=== PATIENT | male | born 1935 | race Caucasian/White ===

== ENCOUNTER → 2018-03-25 | Outpatient (CLI) | payer OTHER | END | disposition home or self-care (01) | LOC: KCIC CT 09:21 | DX: J32.9 Chronic sinusitis, unspecified (principal); J34.1 Cyst and mucocele of nose and nasal sinus; G31.89 Other specified degenerative diseases of nervous system | CPT/HCPCS: 70486 ==

== ENCOUNTER → 2018-07-29 | Outpatient (CLI) | payer OTHER ==
[2015-11-17 11:08] VITALS: BP 134/76
[~2018-07-29] MED LIST: AMIO200T4 PO; AMIO400T5 PO; CYAN100070 PO; DILT240C2 PO; FERR325T72 PO; FOLI1TAB16 PO; FURO-68 PO; Hydrocodone/Acetaminophen PO; LEVE500T56 PO; LEVE500V7 IV; POTA10TA12 PO; PROP150T PO; Sennosides/Docusate Sodium PO; TERA5CAP3 PO; THIA250T2 PO; WARF6TAB49 PO
--- NOTE | 2018-07-29 12:59 | KCIC ---
EXAM: Thoracic spine, 3 views; lumbar spine, 5 views. HISTORY: Pain. COMPARISON: None. FINDINGS: Thoracic spine: Frontal, lateral and swimmer's views of the thoracic spine are obtained. There is mild S-shaped thoracic scoliosis and increased thoracic kyphosis. There is a moderate chronic appearing T7 wedge compression fracture. There is endplate remodeling at multiple levels. There is bone demineralization. There is evidence of median sternotomy and mitral valve surgery. There are distended air and stool-filled loops of bowel within the upper abdomen. There are healed rib fractures. There is mild anterolisthesis of C4 on C5. There is disc space narrowing predominantly at this level. Lumbar spine: 5 views of the lumbar spine are obtained. There is a moderate chronic appearing L2 compression fracture. There is no significant retropulsion of the cortex at this level. There is degenerative endplate remodeling with anterior ossify ptosis primarily at the upper lumbar levels. There is facet arthropathy predominantly at the mid and lower lumbar levels. There is grade 1 anterolisthesis of L3 on L4 and L4-L5. There is bone demineralization. There is a large amount of stool within the colon. There are distended air-filled loops of bowel within the abdomen. There is left proximal femoral fixation instrumentation. IMPRESSION: 1. Moderate chronic appearing T7 compression fracture and L2 compression fracture. 2. Multilevel degenerative change throughout the thoracolumbar spine and cervical spine, described in detail above. 3. Scoliosis and multilevel listhesis. 4. Bone demineralization. 5. Distended loops of bowel within the upper abdomen. This can be better assessed with an abdomen radiograph. Electronically signed by: Melissa Sow MD (07/29/2018 12:56 PM) [place] [id number]
== END | disposition home or self-care (01) ==
LOC: KCIC 11:59
PROVIDERS: ATTEND Emergency Medicine
DX: M47.895 Other spondylosis, thoracolumbar region (principal); M41.84 Other forms of scoliosis, thoracic region; M43.14 Spondylolisthesis, thoracic region; M81.8 Other osteoporosis without current pathological fracture; I12.9 Hypertensive chronic kidney disease with stage 1 through stage 4 chronic kidney disease, or unspecified chronic kidney disease; N18.2 Chronic kidney disease, stage 2 (mild); I48.2 Chronic atrial fibrillation; Z95.2 Presence of prosthetic heart valve; Z96.652 Presence of left artificial knee joint; Z90.49 Acquired absence of other specified parts of digestive tract; Z82.49 Family history of ischemic heart disease and other diseases of the circulatory system
CPT/HCPCS: 72072; 72110

== ENCOUNTER 2018-12-24 09:25 | Emergency (ER) | payer OTHER ==
[~2018-12-24] VITALS: Ht 182.9 cm; Wt 89.4 kg
[~2018-12-24 09:25] MED LIST changes: +WARF3TAB50 PO
--- NOTE | 2018-12-24 09:56 | PHYS DOC ---
Past Medical History Past Medical History: A-Fib, Seizure Additional Past Medical Histor: guillain barre, "folded intestine" Past Surgical History: Hip Replacement Additional Past Surgical Histo: "valve repair"-MITRAL Alcohol Use: None Drug Use: None Adult General Chief Complaint Chief Complaint: OTHER COMPLAINTS HPI HPI Patient is a 83 year old male with a PMH of Afib, BPH and urinary retention who presents with concerns regarding the color of his urine. He had pacemaker placed last week and upon discharge had urinary retention and was not able to void. He was sent home with a kuo and has a follow up appointment with urology next week. Yesterday his noted his urine to me "muddy brown." When it did not significantly clear up this morning she decided to bring him here to ED. Patient denies suprapubic tenderness or abdominal pain. He thinks he has had good oral intake and is eating and drinking normally. He reports residual tenderness around incision from where pacemaker was placed but otherwise is doing well. He denies fevers, chills, chest pain, worsening shortness of breath , or edema. Review of Systems Review of Systems Constitutional: Denies fever or chills HENT: Denies nasal congestion or sore throat Respiratory: Reports shortness of breath with exertion (chronic) GI: Denies abdominal pain, nausea, vomiting, diarrhea : Denies dysuria or hematuria, his reports "muddy brown" output from his kuo Musculoskeletal: Denies back pain or joint pain Integument: Denies rash or skin lesions, reports healing incision left upper chest Neurologic: Denies headache, focal weakness or sensory changes Complete systems were reviewed and found to be within normal limits, except as documented in this note. Current Medications Current Medications Current Medications Medications (Trade) Dose Ordered Sig/Tom Start Time Stop Time Status Last Admin Dose Admin Cephalexin HCl (Keflex) 500 mg 1X ONCE 12/24/18 13:00 12/24/18 13:01 DC 12/24/18 13:19 500 MG Sodium Chloride 1,000 ml @ 1,000 mls/hr 1X ONCE 12/24/18 10:00 12/24/18 10:59 DC 12/24/18 10:55 1,000 MLS/HR Allergies Allergies Allergies Coded Allergies Type Severity Reaction Last Updated Verified No Known Drug Allergies 12/24/18 No Physical Exam Physical Exam Constitutional: Well developed, well nourished, no acute distress, non-toxic appearance. HENT: Normocephalic, atraumatic, bilateral external ears normal, oropharynx moist Eyes: PERRL, EOMI, conjunctiva normal, no discharge. Neck:no tenderness, no JVD Cardiovascular:Heart rate regular rhythm, no murmur Lungs & Thorax: Bilateral breath sounds clear to auscultation Abdomen: soft, no tenderness, no distention : kuo catheter in place and appears to be draining without issue Skin: Warm, dry, no erythema, no rash, incision of left upper chest healing well with steri strips in place, no evidence of infection Extremities: No tenderness, no edema Neurologic: Alert and oriented X 3, normal motor function, normal sensory function, no focal deficits noted. Psychologic: Affect normal, judgement normal, mood normal. Current Patient Data Vital Signs Vital Signs Date Time Temp Pulse Resp B/P (MAP) Pulse Ox O2 Delivery O2 Flow Rate FiO2 12/24/18 13:30 50 20 183/86 (118) 96 Nasal Cannula 2.0 12/24/18 10:03 97.9 97.9 Lab Values Laboratory Tests Test 12/24/18 10:50 12/24/18 11:50 White Blood Count 7.4 x10^3/uL (4.0-11.0) Red Blood Count 3.75 x10^6/uL (4.30-5.70) L Hemoglobin 11.1 g/dL (13.0-17.5) L Hematocrit 34.1 % (39.0-53.0) L Mean Corpuscular Volume 91 fL (79-100) Mean Corpuscular Hemoglobin 30 pg (25-35) Mean Corpuscular Hemoglobin Concent 33 g/dL (31-37) Red Cell Distribution Width 15.1 % (11.5-14.5) H Platelet Count 207 x10^3/uL (140-400) Neutrophils (%) (Auto) 74 % (31-73) H Lymphocytes (%) (Auto) 16 % (24-48) L Monocytes (%) (Auto) 8 % (0-9) Eosinophils (%) (Auto) 3 % (0-3) Basophils (%) (Auto) 0 % (0-3) Neutrophils # (Auto) 5.4 x10^3uL (1.8-7.7) Lymphocytes # (Auto) 1.1 x10^3/uL (1.0-4.8) Monocytes # (Auto) 0.6 x10^3/uL (0.0-1.1) Eosinophils # (Auto) 0.2 x10^3/uL (0.0-0.7) Basophils # (Auto) 0.0 x10^3/uL (0.0-0.2) Prothrombin Time 20.0 SEC (11.7-14.0) H Prothrombin Time INR 1.7 (0.8-1.1) H PTT 39 SEC (24-38) H Sodium Level 140 mmol/L (136-145) Potassium Level 4.3 mmol/L (3.5-5.1) Chloride Level 107 mmol/L (98-107) Carbon Dioxide Level 26 mmol/L (21-32) Anion Gap 7 (6-14) Blood Urea Nitrogen 22 mg/dL (8-26) Creatinine 1.3 mg/dL (0.7-1.3) Estimated GFR (Cockcroft-Gault) 52.5 BUN/Creatinine Ratio 17 (6-20) Glucose Level 85 mg/dL (70-99) Calcium Level 8.4 mg/dL (8.5-10.1) L Magnesium Level 2.2 mg/dL (1.8-2.4) Total Bilirubin 0.6 mg/dL (0.2-1.0) Aspartate Amino Transferase (AST) 20 U/L (15-37) Alanine Aminotransferase (ALT) 24 U/L (16-63) Alkaline Phosphatase 93 U/L (46-116) Creatine Kinase 59 U/L (39-308) Creatine Kinase MB (Mass) 1.9 ng/mL (0.0-3.6) Creatine Kinase MB Relative Index % (0-4) Troponin I Quantitative 0.020 ng/mL (0.000-0.055) IF-Yqv-U-Type Natriuretic Peptide 1924 pg/mL (0-449) H Total Protein 6.5 g/dL (6.4-8.2) Albumin 3.0 g/dL (3.4-5.0) L Albumin/Globulin Ratio 0.9 (1.0-1.7) L Urine Collection Type U cath Urine Color Maxine Urine Clarity Clear Urine pH 5.0 Urine Specific [place] 1.025 Urine Protein 100 mg/dL (NEG-TRACE) Urine Glucose (UA) Negative mg/dL (NEG) Urine Ketones (Stick) Negative mg/dL (NEG) Urine Blood Large (NEG) Urine Nitrite Negative (NEG) Urine Bilirubin Small (NEG) Urine Urobilinogen Dipstick 1.0 mg/dL (0.2 mg/dL) Urine Leukocyte Esterase Small (NEG) Urine RBC Tntc /HPF (0-2) Urine WBC 5-10 /HPF (0-4) Urine Bacteria 0 /HPF (0-FEW) Laboratory Tests 12/24/18 10:50 Laboratory Tests 12/24/18 10:50 Microbiology 12/24/18 Urine Culture - Final, Complete 12/24/18 Urine Culture Result 1 (JEY) - Final, Complete EKG EKG @10:30 paced rhythm at 50 BPM QRS: 192ms QT/QTc: 562/516 ms Radiology/Procedures Radiology/Procedures PROCEDURE: CHEST PA & LATERAL Chest, PA and Lateral: Technique: PA and lateral views of the chest were obtained. History: Chronic shortness of breath, pacemaker placement. Comparison: 12/20/2018. Findings: Moderate cardiomegaly. Single left-sided pacer identified.There is no acute infiltrate or visualized pneumothorax.. Severe compression change of mid thoracic vertebral body similar to prior exam. Impression: No acute cardiopulmonary findings. Electronically signed by: Burt Hunt MD (12/24/2018 10:36 AM) [facility] DICTATED and SIGNED BY: BURT HUNT MD DATE: 12/24/18 1033 Course & Med Decision Making Course & Med Decision Making Pertinent Labs and Imaging studies reviewed. (See chart for details) Patient has history of Afib s/p pacemaker placement last week. During admission he developed urinary retention and was discharged with a Kuo in place. He has a follow up appointment with Urology next week but his noted "muddy brown" urine yesterday. When it did not significantly clear this morning she decided to bring him to the ED as she was not able to get in touch with their doctor. Patient is doing well from his recent procedure and has no complaints aside from residual tenderness around implant site. He denies abdominal pain, flank pain, fevers, or chills. Reports some chronic dyspnea with exertion. He has been eating and drinking normally. His chest xray showed left sided pacer in place without any acute findings. INR slightly decreased from therapeutic range. Patient advised to take extra dose tonight and then have it rechecked by his doctor. UA was suspicious for infection. Empiric antibiotics provided. Patient discharged with antibiotics and Kuo changed. Patient stable for discharge with outpatient follow-up with PCP/urology. Discussed findings and plan with patient and family, who acknowledge understanding and agreement. Dragon Disclaimer Dragon Disclaimer This electronic medical record was generated, in whole or in part, using a voice recognition dictation system. Departure Departure Impression: Primary Impression: Urinary tract infection Additional Impression: Status post cardiac pacemaker procedure Disposition: HOME, SELF-CARE Condition: STABLE Referrals: ROSALINO HUMPHREYS MD (PCP) Patient Instructions: Catheter-Associated Urinary Tract Infection FAQs - LIPSCOMB Additional Instructions: Your INR is slightly low today at 1.7. Take an extra dose of coumadin at your normal time today. Then continue as previously ordered. Scripts Cephalexin (KEFLEX) 500 Mg Capsule 500 MG PO TID for 7 Days, #21 CAP Prov: EDIE STRONG DO 12/24/18 Problem Qualifiers Primary Impression: Urinary tract infection Urinary tract infection type: catheter-associated UTI Indwelling urinary catheter type: indwelling urethral catheter Encounter type: initial encounter Qualified Codes: T83.511A - Infection and inflammatory reaction due to indwelling urethral catheter, initial encounter; N39.0 - Urinary tract infection, site not specified EDIE STRONG DO Dec 24, 2018 09:56
[2018-12-24] MEDS ORDERED: IV NORMAL SALINE 1000ML BAG 1,000 ML IV ONE (10:00)
--- NOTE | 2018-12-24 10:39 | RAD ---
Chest, PA and Lateral: Technique: PA and lateral views of the chest were obtained. History: Chronic shortness of breath, pacemaker placement. Comparison: 12/20/2018. Findings: Moderate cardiomegaly. Single left-sided pacer identified.There is no acute infiltrate or visualized pneumothorax.. Severe compression change of mid thoracic vertebral body similar to prior exam. Impression: No acute cardiopulmonary findings. Electronically signed by: Burt Hunt MD (12/24/2018 10:36 AM) [facility]
[2018-12-24 11:06] LABS: BASO % 0 % (0-3); EOS # 0.2 x10^3/uL (0.0-0.7); EOS % 3 % (0-3); HEMATOCRIT 34.1 % (39.0-53.0); HEMOGLOBIN 11.1 g/dL (13.0-17.5); LYMPH # 1.1 x10^3/uL (1.0-4.8); LYMPH % 16 % (24-48); MEAN CORPUSCULAR HEMOGLOBIN 30 pg (25-35); MEAN CORPUSCULAR HGB CONC 33 g/dL (31-37); MEAN CORPUSCULAR VOLUME 91 fL (79-100); MONO # 0.6 x10^3/uL (0.0-1.1); MONO % 8 % (0-9); NEUT # 5.4 x10^3uL (1.8-7.7); NEUT % 74 % (31-73); PLATELET COUNT 207 x10^3/uL (140-400); RED BLOOD COUNT 3.75 x10^6/uL (4.30-5.70); RED CELL DISTRIBUTION WIDTH 15.1 % (11.5-14.5); WHITE BLOOD COUNT 7.4 x10^3/uL (4.0-11.0)
[2018-12-24 11:26] LABS: CALCIUM 8.4 mg/dL (8.5-10.1); CREATININE 1.3 mg/dL (0.7-1.3); GFR 52.5; POTASSIUM 4.3 mmol/L (3.5-5.1)
[2018-12-24 11:32] LABS: ALBUMIN/GLOBULIN RATIO 0.9 (1.0-1.7); MAGNESIUM 2.2 mg/dL (1.8-2.4); TOTAL BILIRUBIN 0.6 mg/dL (0.2-1.0); TOTAL PROTEIN 6.5 g/dL (6.4-8.2)
[2018-12-24 11:40] LABS: CREATINE KINASE 59 U/L (39-308)
[2018-12-24 12:18] LABS: BILIRUBIN,URINE SMALL (NEG); CLARITY,URINE CLEAR; COLOR,URINE AMBER; NITRITE,URINE NEGATIVE (NEG); PROTEIN,URINE 100 mg/dL (NEG-TRACE)
[2018-12-24 12:27] LABS: BACTERIA,URINE 0 /HPF (0-FEW); RBC,URINE TNTC /HPF (0-2)
[2018-12-24] MEDS ORDERED: CEPHALEXIN 250 MG CAPSULE. PO ONE (13:00)
[2018-12-24] MEDS ORDERED: CEPH-264 PO (13:01)
[2018-12-24 13:30] VITALS: BP 183/86
--- NOTE | 2018-12-26 14:08 | EKG ---
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
== END 2018-12-24 13:30 | disposition home or self-care (01) ==
LOC: ER 09:25
DX: T83.511A Infection and inflammatory reaction due to indwelling urethral catheter, initial encounter (principal); N39.0 Urinary tract infection, site not specified; Z95.0 Presence of cardiac pacemaker; I48.91 Unspecified atrial fibrillation; Z96.649 Presence of unspecified artificial hip joint; Y84.6 Urinary catheterization as the cause of abnormal reaction of the patient, or of later complication, without mention of misadventure at the time of the procedure; Y92.89 Other specified places as the place of occurrence of the external cause
CPT/HCPCS: 36415; 51702; 71046; 80053; 81001; 82553; 83735; 83880; 84484; 85025; 85610; 85730; 87086; 93005; 99284; J7030

== ENCOUNTER 2019-08-04 12:23 | Inpatient (IN) | payer OTHER ==
[~2019-08-04] VITALS: Ht 182.9 cm; Wt 93.7 kg
[~2019-08-04 12:23] MED LIST changes: +CEPH-264 PO
[2019-08-04] MEDS ORDERED: IV NORMAL SALINE 1000ML BAG 1,000 ML IV SCH (12:40)
--- NOTE | 2019-08-04 12:59 | PHYS DOC ---
Past Medical History Past Medical History: A-Fib, Seizure Additional Past Medical Histor: guillain barre, "folded intestine" Past Surgical History: Hip Replacement, Pacemaker Additional Past Surgical Histo: "valve repair"-MITRAL Alcohol Use: None Drug Use: None Adult General Chief Complaint Chief Complaint: OTHER COMPLAINTS HPI HPI Patient is an 84-year-old male who presents with report of right-sided facial droop that had noted about an hour ago. She states that the droop lasted approximately 5 minutes and then resolved. Patient did not have any lateralizing weakness of extremities, sensory deficits or speech deficits. Patient does have history of TIA in the past. Patient denies any chest pain or shortness of breath. He also denies any headache.[] Review of Systems Review of Systems Constitutional: Denies fever or chills [] Respiratory: Denies cough or shortness of breath [] Cardiovascular: No additional information not addressed in HPI [] GI: Denies abdominal pain, nausea, vomiting or diarrhea [] Integument: Denies rash or skin lesions [] Neurologic: Denies headache. Positive right-sided facial droop. No sensory loss. [] All other systems were reviewed and found to be within normal limits, except as documented in this note. Current Medications Current Medications Current Medications Medications (Trade) Dose Ordered Sig/Tom Start Time Stop Time Status Last Admin Dose Admin Amiodarone HCl (Cordarone) 200 mg DAILY 08/05/19 09:00 UNV Folic Acid (Folic Acid) 1 mg DAILY 08/05/19 09:00 UNV Furosemide (Lasix) 40 mg DAILY 08/05/19 09:00 UNV Levetiracetam (Keppra) 500 mg BID 08/04/19 21:00 UNV Non-Formulary Medication (Cyanocobalamin (Vitamin B-12) (Vitamin B-12)) 1,000 mcg DAILY 08/05/19 09:00 UNV Non-Formulary Medication (Thiamine Hcl ) 250 mg DAILY 08/05/19 09:00 UNV Potassium Chloride (Klor-Con) 10 meq DAILY 08/05/19 09:00 UNV Sodium Chloride 1,000 ml @ 100 mls/hr Q10H 08/04/19 12:40 08/04/19 22:39 08/04/19 13:19 100 MLS/HR Terazosin HCl (Hytrin) 10 mg HS 08/04/19 21:00 UNV Warfarin Sodium (Coumadin) 3 mg DAILY16 08/04/19 16:00 UNV Allergies Allergies Allergies Coded Allergies Type Severity Reaction Last Updated Verified No Known Drug Allergies 12/24/18 No Physical Exam Physical Exam Constitutional: Well developed, well nourished, no acute distress, non-toxic appearance. [] HENT: Normocephalic, atraumatic, bilateral external ears normal, oropharynx moist, no oral exudates, nose normal. [] Eyes: PERRLA, EOMI, conjunctiva normal, no discharge. [] Neck: Normal range of motion, no tenderness, supple. [] Cardiovascular: Regular rate and rhythm[] Lungs & Thorax: Bilateral breath sounds clear to auscultation [] Abdomen: Bowel sounds normal, soft, no tenderness. [] Skin: Warm, dry, no erythema, no rash. [] Extremities: No tenderness, no cyanosis, no clubbing, ROM intact. [] Neurologic: Alert and oriented X 3, no focal deficits noted. [] Current Patient Data Vital Signs Vital Signs Date Time Temp Pulse Resp B/P (MAP) Pulse Ox O2 Delivery O2 Flow Rate FiO2 08/04/19 12:30 97.9 84 18 118/68 (85) 100 Room Air 97.9 Lab Values Laboratory Tests Test 08/04/19 12:34 08/04/19 12:50 Glucose (Fingerstick) 99 mg/dL (70-99) White Blood Count 6.5 x10^3/uL (4.0-11.0) Red Blood Count 4.11 x10^6/uL (4.30-5.70) L Hemoglobin 11.9 g/dL (13.0-17.5) L Hematocrit 35.8 % (39.0-53.0) L Mean Corpuscular Volume 87 fL (79-100) Mean Corpuscular Hemoglobin 29 pg (25-35) Mean Corpuscular Hemoglobin Concent 33 g/dL (31-37) Red Cell Distribution Width 16.3 % (11.5-14.5) H Platelet Count 154 x10^3/uL (140-400) Neutrophils (%) (Auto) 70 % (31-73) Lymphocytes (%) (Auto) 20 % (24-48) L Monocytes (%) (Auto) 7 % (0-9) Eosinophils (%) (Auto) 2 % (0-3) Basophils (%) (Auto) 1 % (0-3) Neutrophils # (Auto) 4.6 x10^3/uL (1.8-7.7) Lymphocytes # (Auto) 1.3 x10^3/uL (1.0-4.8) Monocytes # (Auto) 0.5 x10^3/uL (0.0-1.1) Eosinophils # (Auto) 0.1 x10^3/uL (0.0-0.7) Basophils # (Auto) 0.1 x10^3/uL (0.0-0.2) Sodium Level 141 mmol/L (136-145) Potassium Level 4.5 mmol/L (3.5-5.1) Chloride Level 107 mmol/L (98-107) Carbon Dioxide Level 27 mmol/L (21-32) Anion Gap 7 (6-14) Blood Urea Nitrogen 25 mg/dL (8-26) Creatinine 1.5 mg/dL (0.7-1.3) H Estimated GFR (Cockcroft-Gault) 44.4 BUN/Creatinine Ratio 17 (6-20) Glucose Level 99 mg/dL (70-99) Calcium Level 8.7 mg/dL (8.5-10.1) Magnesium Level 2.3 mg/dL (1.8-2.4) Total Bilirubin 0.9 mg/dL (0.2-1.0) Aspartate Amino Transferase (AST) 17 U/L (15-37) Alanine Aminotransferase (ALT) 13 U/L (16-63) L Alkaline Phosphatase 92 U/L (46-116) Troponin I Quantitative < 0.017 ng/mL (0.000-0.055) Total Protein 6.4 g/dL (6.4-8.2) Albumin 3.6 g/dL (3.4-5.0) Albumin/Globulin Ratio 1.3 (1.0-1.7) Laboratory Tests 08/04/19 12:50 Laboratory Tests 08/04/19 12:50 EKG EKG [] Interpretation Time: EKG demonstrates a ventricular paced rhythm with rate of 76. Radiology/Procedures Radiology/Procedures [] Impressions: PROCEDURE: CT HEAD WO CONTRAST EXAM: Head CT without contrast. HISTORY: Right-sided facial droop. TECHNIQUE: Computed tomographic images of the head were obtained without contrast. *One or more of the following individualized dose reduction techniques were utilized for this examination: 1. Automated exposure control. 2. Adjustment of the mA and/or kV according to patient size. 3. Use of iterative reconstruction technique. COMPARISON: 12/17/2018. FINDINGS: There is no acute or subacute extra-axial or intraparenchymal hemorrhage. There is no mass effect or midline shift. There is no hydrocephalus. There are areas of decreased attenuation within the cerebral white matter, nonspecific and likely related to chronic small vessel disease. There is cerebral volume loss. There is a small focus of hypodensity within the left cerebellum possibly due to encephalomalacia status post chronic infarction. There is evidence of lens surgery. 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 There is evidence of prior left mastoidectomy surgery. No suspicious calvarial lesion is seen. IMPRESSION: 1. No acute intracranial finding. Note is made that MRI is more sensitive for acute infarction. 2. Decreased attenuation within the cerebral white matter, likely due to chronic small vessel disease. 3. Mild cerebral volume loss. 4. 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 Electronically signed by: Melissa Sow MD (08/04/2019 1:10 PM) [place] [id number] Course & Med Decision Making Course & Med Decision Making Pertinent Labs and Imaging studies reviewed. (See chart for details) [] Dragon Disclaimer Dragon Disclaimer This electronic medical record was generated, in whole or in part, using a voice recognition dictation system. Departure Departure Impression: Primary Impression: TIA (transient ischemic attack) Disposition: ADMITTED INPATIENT Admitting Physician: MARIA ISABEL (Dr. Willett) Condition: GOOD Referrals: ROSALINO HUMPHREYS MD (PCP) RAFIA RESTREPO Jr. DO Aug 04, 2019 12:59
[2019-08-04 13:06] LABS: BASO # 0.1 x10^3/uL (0.0-0.2); BASO % 1 % (0-3); EOS # 0.1 x10^3/uL (0.0-0.7); EOS % 2 % (0-3); HEMATOCRIT 35.8 % (39.0-53.0); HEMOGLOBIN 11.9 g/dL (13.0-17.5); LYMPH # 1.3 x10^3/uL (1.0-4.8); LYMPH % 20 % (24-48); MEAN CORPUSCULAR HEMOGLOBIN 29 pg (25-35); MEAN CORPUSCULAR HGB CONC 33 g/dL (31-37); MEAN CORPUSCULAR VOLUME 87 fL (79-100); MONO # 0.5 x10^3/uL (0.0-1.1); MONO % 7 % (0-9); NEUT # 4.6 x10^3/uL (1.8-7.7); NEUT % 70 % (31-73); PLATELET COUNT 154 x10^3/uL (140-400); RED BLOOD COUNT 4.11 x10^6/uL (4.30-5.70); RED CELL DISTRIBUTION WIDTH 16.3 % (11.5-14.5); WHITE BLOOD COUNT 6.5 x10^3/uL (4.0-11.0)
--- NOTE | 2019-08-04 13:13 | RAD ---
EXAM: Head CT without contrast. HISTORY: Right-sided facial droop. TECHNIQUE: Computed tomographic images of the head were obtained without contrast. *One or more of the following individualized dose reduction techniques were utilized for this examination: 1. Automated exposure control. 2. Adjustment of the mA and/or kV according to patient size. 3. Use of iterative reconstruction technique. COMPARISON: 12/17/2018. FINDINGS: There is no acute or subacute extra-axial or intraparenchymal hemorrhage. There is no mass effect or midline shift. There is no hydrocephalus. There are areas of decreased attenuation within the cerebral white matter, nonspecific and likely related to chronic small vessel disease. There is cerebral volume loss. There is a small focus of hypodensity within the left cerebellum possibly due to encephalomalacia status post chronic infarction. There is evidence of lens surgery. 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 There is evidence of prior left mastoidectomy surgery. No suspicious calvarial lesion is seen. IMPRESSION: 1. No acute intracranial finding. Note is made that MRI is more sensitive for acute infarction. 2. Decreased attenuation within the cerebral white matter, likely due to chronic small vessel disease. 3. Mild cerebral volume loss. 4. 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 Electronically signed by: Melissa Sow MD (08/04/2019 1:10 PM) [id number]
[2019-08-04 13:26] LABS: CALCIUM 8.7 mg/dL (8.5-10.1); CREATININE 1.5 mg/dL (0.7-1.3); GFR 44.4; POTASSIUM 4.5 mmol/L (3.5-5.1)
[2019-08-04 13:32] LABS: ALBUMIN 3.6 g/dL (3.4-5.0); ALBUMIN/GLOBULIN RATIO 1.3 (1.0-1.7); MAGNESIUM 2.3 mg/dL (1.8-2.4); TOTAL BILIRUBIN 0.9 mg/dL (0.2-1.0); TOTAL PROTEIN 6.4 g/dL (6.4-8.2)
--- NOTE | 2019-08-04 13:41 | EKG ---
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
[2019-08-04] MEDS ORDERED: ACETAMINOPHEN 500 MG TABLET PO PRN (14:30)
[2019-08-04] MEDS ORDERED: ONDANSETRON PF 4 MG/2 ML VIAL. IVP PRN (14:30)
[2019-08-04] MEDS ORDERED: TEMAZEPAM 7.5 MG CAPSULE PO PRN (14:30)
[2019-08-04 14:37] LABS: PROTHROMBIN TIME PATIENT 22.9 SEC (11.7-14.0)
--- NOTE | 2019-08-04 14:37 | PDOC1 ---
History and Physical Date of Admission Date of Admission DATE: 08/04/19 TIME: 14:32 Identification/Chief Complaint Chief Complaint Slurred speech, right-sided facial droop-resolved upon ER arrival Source Source: Caregiver, Chart review, Patient History of Present Illness History of Present Illness Very pleasant 84-year-old male who lives within equally pleasant , noticed 5 minute duration of right-sided facial droop and slurred speech which patient was aware of. Patient has history of A. fib on warfarin with INR 2.0 recently checked, history of TIA in the past, UTI with urinary retention. Has an indwelling pacemaker, compliant with medications. I have renewed home meds. Blood pressure is good. He feels back to his baseline labs are unremarkable. 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 Admitted with consults neurology and the service wishes ultrasound of the neck/carotids and echocardiogram. I presented my plan and they are aware Past Medical History Cardiovascular: AFIB, CAD, HTN, Other Pulmonary: No pertinent hx, COPD GI: No pertinent hx Heme/Onc: Anemia NOS Hepatobiliary: No pertinent hx Psych: No pertinent hx Rheumatologic: No pertinent hx Infectious disease: No pertinent hx Renal/: No pertinent hx Endocrine: No pertinent hx Past Surgical History Past Surgical History: Cataract Removal, Total hip replacement, Total knee replacement, Colon Resection, Other Family History Family History: Heart Disease Social History Smoke: No ALCOHOL: rare Drugs: None Current Problem List Problem List Problems Medical Problems: (1) TIA (transient ischemic attack) Status: Acute Current Medications Current Medications Current Medications Sodium Chloride 1,000 ml @ 100 mls/hr Q10H IV Last administered on 08/04/19at 13:19; Start 08/04/19 at 12:40; Stop 08/04/19 at 22:39 Amiodarone HCl (Cordarone) 200 mg DAILY PO ; Start 08/05/19 at 09:00; Status UNV Folic Acid (Folic Acid) 1 mg DAILY PO ; Start 08/05/19 at 09:00; Status UNV Furosemide (Lasix) 40 mg DAILY PO ; Start 08/05/19 at 09:00; Status UNV Levetiracetam (Keppra) 500 mg BID PO ; Start 08/04/19 at 21:00; Status UNV Potassium Chloride (Klor-Con) 10 meq DAILY PO ; Start 08/05/19 at 09:00; Status UNV Terazosin HCl (Hytrin) 10 mg HS PO ; Start 08/04/19 at 21:00; Status UNV Warfarin Sodium (Coumadin) 3 mg DAILY16 PO ; Start 08/04/19 at 16:00; Status UNV Non-Formulary Medication (Cyanocobalamin (Vitamin B-12) (Vitamin B-12)) 1,000 mcg DAILY PO ; Start 08/05/19 at 09:00; Status UNV Non-Formulary Medication (Thiamine Hcl ) 250 mg DAILY PO ; Start 08/05/19 at 09:00; Status UNV Temazepam (Restoril) 7.5 mg PRN QHS PRN PO INSOMNIA; Start 08/04/19 at 14:30; Status UNV Acetaminophen (Tylenol) 500 mg PRN Q6HRS PRN PO MILD PAIN / TEMP; Start 08/04/19 at 14:30; Status UNV Ondansetron HCl (Zofran) 4 mg PRN Q6HRS PRN IVP NAUSEA/VOMITING; Start 08/04/19 at 14:30; Status UNV Active Scripts Active Keflex (Cephalexin) 500 Mg Capsule 500 Mg PO TID 7 Days Reported Warfarin Sodium 3 Mg Tablet 3 Mg PO DAILY16 Amiodarone Hcl 200 Mg Tablet 1 Tab PO DAILY Lasix (Furosemide) 40 Mg Tablet 1 Tab PO DAILY Potassium Chloride 10 Meq Capsule.er 1 Cap PO DAILY Keppra (Levetiracetam) 500 Mg Tablet 1 Tab PO BID Thiamine Hcl 250 Mg Tablet 250 Mg PO DAILY Terazosin Hcl 5 Mg Capsule 10 Mg PO HS Vitamin B-12 (Cyanocobalamin (Vitamin B-12)) 1,000 Mcg Tablet.er 1,000 Mcg PO DAILY Folic Acid 1 Mg Tablet 1 Mg PO DAILY Allergies Allergies: Coded Allergies: No Known Drug Allergies (Unverified , 12/24/18) ROS Review of System A 14 point ROS was completed with the following noted as positive: Other systems reviewed and negative. \CONSTITUTIONAL: No fever or chills EYES: No recent changes SKIN: No rash or itching CARDIOVASCULAR: No chest pain, syncope, palpitations, or edema RESPIRATORY: No SOB or cough GASTROINTESTINAL: No nausea, vomiting or abdominal pain NEUROLOGICAL: No headaches or weakness ENDOCRINE: No cold or heat intolerance GENITOURINARY: No urgency or frequency of urination MUSCULOSKELETAL: No back pain or joint pain LYMPHATICS: No enlarged lymph nodes PSYCHIATRIC: No anxiety or depression Physical Exam General: Alert, Oriented X3, Cooperative, No acute distress HEENT: Atraumatic, PERRLA, EOMI Lungs: Clear to auscultation, Normal air movement Heart: S1S2, RRR, no thrills, no rubs, no gallops, no murmurs Cardiovascular: S1, S2 Breasts: Normal, Rt breast nml w/o mass, Lt breast nml w/o mass, Nipples normal Abdomen: Normal bowel sounds, Soft, No tenderness, No hepatosplenomegaly, No masses Rectal Exam: not examined PELVIC: Nml ext genitalia Extremities: No clubbing, No cyanosis, No edema, Normal pulses, No tenderness/swelling Skin: No rashes, No breakdown, No significant lesion Neuro: Normal gait, Normal speech, Strength at 5/5 X4 ext, Normal tone, Sensation intact, Cranial nerves 3-12 NL, Reflexes 2+ Psych/Mental Status: Mental status NL, Mood NL Vitals Vitals Vital Signs Date Time Temp Pulse Resp B/P (MAP) Pulse Ox O2 Delivery O2 Flow Rate FiO2 08/04/19 12:30 97.9 84 18 118/68 (85) 100 Room Air 97.9 Labs Labs Laboratory Tests Test 08/04/19 12:34 08/04/19 12:50 Glucose (Fingerstick) 99 mg/dL (70-99) White Blood Count 6.5 x10^3/uL (4.0-11.0) Red Blood Count 4.11 x10^6/uL (4.30-5.70) Hemoglobin 11.9 g/dL (13.0-17.5) Hematocrit 35.8 % (39.0-53.0) Mean Corpuscular Volume 87 fL (79-100) Mean Corpuscular Hemoglobin 29 pg (25-35) Mean Corpuscular Hemoglobin Concent 33 g/dL (31-37) Red Cell Distribution Width 16.3 % (11.5-14.5) Platelet Count 154 x10^3/uL (140-400) Neutrophils (%) (Auto) 70 % (31-73) Lymphocytes (%) (Auto) 20 % (24-48) Monocytes (%) (Auto) 7 % (0-9) Eosinophils (%) (Auto) 2 % (0-3) Basophils (%) (Auto) 1 % (0-3) Neutrophils # (Auto) 4.6 x10^3/uL (1.8-7.7) Lymphocytes # (Auto) 1.3 x10^3/uL (1.0-4.8) Monocytes # (Auto) 0.5 x10^3/uL (0.0-1.1) Eosinophils # (Auto) 0.1 x10^3/uL (0.0-0.7) Basophils # (Auto) 0.1 x10^3/uL (0.0-0.2) Sodium Level 141 mmol/L (136-145) Potassium Level 4.5 mmol/L (3.5-5.1) Chloride Level 107 mmol/L (98-107) Carbon Dioxide Level 27 mmol/L (21-32) Anion Gap 7 (6-14) Blood Urea Nitrogen 25 mg/dL (8-26) Creatinine 1.5 mg/dL (0.7-1.3) Estimated GFR (Cockcroft-Gault) 44.4 BUN/Creatinine Ratio 17 (6-20) Glucose Level 99 mg/dL (70-99) Calcium Level 8.7 mg/dL (8.5-10.1) Magnesium Level 2.3 mg/dL (1.8-2.4) Total Bilirubin 0.9 mg/dL (0.2-1.0) Aspartate Amino Transf (AST/SGOT) 17 U/L (15-37) Alanine Aminotransferase (ALT/SGPT) 13 U/L (16-63) Alkaline Phosphatase 92 U/L (46-116) Troponin I Quantitative < 0.017 ng/mL (0.000-0.055) Total Protein 6.4 g/dL (6.4-8.2) Albumin 3.6 g/dL (3.4-5.0) Albumin/Globulin Ratio 1.3 (1.0-1.7) Laboratory Tests Test 08/04/19 12:34 08/04/19 12:50 Glucose (Fingerstick) 99 mg/dL (70-99) White Blood Count 6.5 x10^3/uL (4.0-11.0) Red Blood Count 4.11 x10^6/uL (4.30-5.70) Hemoglobin 11.9 g/dL (13.0-17.5) Hematocrit 35.8 % (39.0-53.0) Mean Corpuscular Volume 87 fL (79-100) Mean Corpuscular Hemoglobin 29 pg (25-35) Mean Corpuscular Hemoglobin Concent 33 g/dL (31-37) Red Cell Distribution Width 16.3 % (11.5-14.5) Platelet Count 154 x10^3/uL (140-400) Neutrophils (%) (Auto) 70 % (31-73) Lymphocytes (%) (Auto) 20 % (24-48) Monocytes (%) (Auto) 7 % (0-9) Eosinophils (%) (Auto) 2 % (0-3) Basophils (%) (Auto) 1 % (0-3) Neutrophils # (Auto) 4.6 x10^3/uL (1.8-7.7) Lymphocytes # (Auto) 1.3 x10^3/uL (1.0-4.8) Monocytes # (Auto) 0.5 x10^3/uL (0.0-1.1) Eosinophils # (Auto) 0.1 x10^3/uL (0.0-0.7) Basophils # (Auto) 0.1 x10^3/uL (0.0-0.2) Sodium Level 141 mmol/L (136-145) Potassium Level 4.5 mmol/L (3.5-5.1) Chloride Level 107 mmol/L (98-107) Carbon Dioxide Level 27 mmol/L (21-32) Anion Gap 7 (6-14) Blood Urea Nitrogen 25 mg/dL (8-26) Creatinine 1.5 mg/dL (0.7-1.3) Estimated GFR (Cockcroft-Gault) 44.4 BUN/Creatinine Ratio 17 (6-20) Glucose Level 99 mg/dL (70-99) Calcium Level 8.7 mg/dL (8.5-10.1) Magnesium Level 2.3 mg/dL (1.8-2.4) Total Bilirubin 0.9 mg/dL (0.2-1.0) Aspartate Amino Transf (AST/SGOT) 17 U/L (15-37) Alanine Aminotransferase (ALT/SGPT) 13 U/L (16-63) Alkaline Phosphatase 92 U/L (46-116) Troponin I Quantitative < 0.017 ng/mL (0.000-0.055) Total Protein 6.4 g/dL (6.4-8.2) Albumin 3.6 g/dL (3.4-5.0) Albumin/Globulin Ratio 1.3 (1.0-1.7) VTE Prophylaxis Ordered VTE Prophylaxis Devices: Yes VTE Pharmacological Prophylaxi: Yes Assessment/Plan Assessment/Plan TIA symptoms namely slurred speech and facial droop lasted 5 minutes History A. fib on Coumadin History hypertension stable History of UTI with urinary retention Indwelling pacer for A. fib Mitral stenosis mild PLAN: Okay to resume home meds, med telemetry floor, consult neurology, echocardiogram, carotid ultrasound CArdiac diet Full code Other supportive meds Continue warfarin check an INR while in-house PT EMMANUEL WHITMAN MD Aug 04, 2019 14:37
[2019-08-04 14:41] LABS: BILIRUBIN,URINE NEGATIVE (NEG); CLARITY,URINE CLEAR; COLOR,URINE YELLOW; NITRITE,URINE NEGATIVE (NEG); PROTEIN,URINE NEGATIVE (NEG-TRACE)
[2019-08-04 15:00] LABS: BACTERIA,URINE 0 /HPF (0-FEW); RBC,URINE 0 /HPF (0-2); SQUAMOUS EPITHELIAL CELL,UR OCC /LPF; WBC,URINE OCC /HPF (0-4)
--- NOTE | 2019-08-04 15:24 | RAD ---
Carotid Doppler dated 08/04/2019. Comparison none. Clinical Indication: TIA. Findings: Grayscale, color flow and spectral waveform analysis was performed. Mild to moderate plaque at both carotid bifurcations, left greater than right. No focal stenosis. The waveforms are within normal limits. Flow within the bilateral vertebral arteries is antegrade. Velocity measurements are as follows (centimeters per second ) Peak systolic velocity right left ICA 81 95 EDV 30 21 CCA 68 77 ICA/CCA ratio 1.4 1.2 Impression: Mild to moderate plaque at both carotid bifurcations with no evidence of hemodynamically significant carotid stenosis. Stenosis calculations for carotid ultrasound studies are derived from validated velocity criteria which are known to correlate with the NASCET methodology. Electronically signed by: Valente Gonsalez MD (08/04/2019 3:21 PM) [id number]
[2019-08-04] MEDS ORDERED: WARFARIN 3 MG TABLET. PO SCH (16:00)
[2019-08-04 19:46] VITALS: BP 140/97
[2019-08-04] MEDS ORDERED: TERAZOSIN 5 MG CAPSULE. PO SCH (21:00)
[2019-08-04] MEDS: levETIRAcetam 500 MG TABLET PO SCH (21:44)
[2019-08-04 23:31] VITALS: BP 122/81
[2019-08-05 03:58] VITALS: BP 118/80
[2019-08-05] MEDS ORDERED: METO25TA2 PO (07:23)
[2019-08-05 07:30] VITALS: BP 145/93
--- NOTE | 2019-08-05 08:38 | PDOC ---
PROGRESS NOTES History of Present Illness History of Present Illness VTE Prophylaxis Ordered VTE Prophylaxis Devices: Yes VTE Pharmacological Prophylaxi: Yes DISCHARGE DX Assessment/Plan TIA symptoms namely slurred speech and facial droop POA on doppler , 08/04 Mild to moderate plaque at both carotid bifurcations with no evidence of hemodynamically significant carotid stenosis. History Manjeet harris on Coumadin History hypertension stable History of UTI with urinary retention Indwelling pacer for Manjeet harris Mitral stenosis mild PLAN: resume home meds, med telemetry floor, consult neurology, echocardiogram, carotid ultrasound C[place]diac diet Full code Other supportive meds Continue warfarin check an INR while in-house PT OT echo today neurology consult pending patient chose to leave AMA D/C PLANNING 22 MIN Vitals Vitals Vital Signs Date Time Temp Pulse Resp B/P (MAP) Pulse Ox O2 Delivery O2 Flow Rate FiO2 08/05/19 07:30 97.4 91 20 145/93 (110) 95 Room Air 97.4 Physical Exam General: Alert, Oriented X3, Cooperative, No acute distress Lungs: Clear, Other Abdomen: Normal bowel sounds, Soft, No tenderness, No hepatosplenomegaly, No masses Extremities: No clubbing, No cyanosis, No edema, Normal pulses, No tenderness/swelling Skin: No rashes, No breakdown, No significant lesion Labs LABS APPROVED REPORT EXAM: Two-dimensional and M-mode echocardiogram with Doppler and color Doppler. Other Information Quality : Technically LimitedLimitedTechnically Limited HR: 45bpm Rhythm : Bradycardia INDICATION Congestive Heart Failure 2D DIMENSIONS RVDd 2.6 (2.9-3.5cm) Left Atrium(2D) 4.5 (1.6-4.0cm) IVSd 1.3 (0.7-1.1cm) Aortic Root(2D) 3.6 (2.0-3.7cm) LVDd 5.2 (3.9-5.9cm) LVOT Diameter 2.4 (1.8-2.4cm) PWd 1.1 (0.7-1.1cm) LVDs 3.4 (2.5-4.0cm) FS (%) 34.8 % SV 81.2 ml Aortic Valve AoV Peak Jatin. 219.9cm/s AoV VTI 43.2cm AO Peak GR. 19.3mmHg LVOT VTI 14.43cm AO Mean GR. 11mmHg CHRIST (VTI) 2.30cm2 Mitral Valve MV E Velocity 135.5cm/s MV E Peak Gr. 11mmHg MV DECEL TIME 424ms MV A Velocity 47.4cm/s MV E Mean Gr. 3mmHg E/A Ratio 2.9 Tricuspid Valve TR P. Velocity 226cm/s RAP ESTIMATE 3mmHg TR Peak Gr. 20mmHg RVSP 23mmHg LEFT VENTRICLE The left ventricle is normal size. There is mild concentric left ventricular hypertrophy. The left ventricular systolic function is normal and the ejection fraction is within normal range. The Ejection Fraction is 50-55%. There is normal LV segmental wall motion. Transmitral Doppler flow pattern is abnormal. RIGHT VENTRICLE The right ventricle is normal size. There is normal right ventricular wall thickness. The right ventricular systolic function is normal. ATRIA The left atrium is mildly dilated. The right atrium size is normal. The interatrial septum is intact with no evidence for an atrial septal defect or patent foramen ovale as noted on 2-D or Doppler imaging. AORTIC VALVE The aortic valve is calcified but opens well. The aortic valve is trileaflet. Doppler and Color Flow revealed no significant aortic regurgitation. There is no significant aortic valvular stenosis. MITRAL VALVE Mitral valve apears repaired. There is no evidence of mitral valve prolapse. There is mild mitral valve stenosis with maximum pressure gradient of 11 mmHg and mean pressure gradient of 2.6 mmHg. Doppler and Color-flow revealed trace mitral regurgitation. TRICUSPID VALVE The tricuspid valve is normal in structure and function. Doppler and Color Flow revealed trace tricuspid regurgitation. The PA pressure was estimated at 23 mmHg. There is no tricuspid valve prolapse or vegetation. There is no tricuspid valve stenosis. PULMONIC VALVE The pulmonary valve is normal in structure and function. Doppler and Color Flow revealed trace pulmonic valvular regurgitation. There is no pulmonic valvular stenosis. GREAT VESSELS The aortic root is normal in size. The ascending aorta is normal in size. PERICARDIAL EFFUSION There is no evidence of significant pericardial effusion. Critical Notification Critical Value: No <Conclusion> The left ventricle is normal size. The left ventricular systolic function is normal and the ejection fraction is within normal range. The Ejection Fraction is 50-55%. There is mild concentric left ventricular hypertrophy. There is no significant aortic valvular stenosis. Doppler and Color Flow revealed no significant aortic regurgitation. Doppler and Color-flow revealed trace mitral regurgitation. Doppler and Color Flow revealed trace tricuspid regurgitation. The PA pressure was estimated at 23 mmHg. Signed by : Carlo Coleman MD Electronically Approved : 12/18/2018 16:01:54 Carotid Doppler dated 08/04/2019. Comparison none. Clinical Indication: TIA. Findings: Grayscale, color flow and spectral waveform analysis was performed. Mild to moderate plaque at both carotid bifurcations, left greater than right. No focal stenosis. The waveforms are within normal limits. Flow within the bilateral vertebral arteries is antegrade. Velocity measurements are as follows (centimeters per second ) Peak systolic velocity right left ICA 81 95 EDV 30 21 CCA 68 77 ICA/CCA ratio 1.4 1.2 Impression: Mild to moderate plaque at both carotid bifurcations with no evidence of hemodynamically significant carotid stenosis. Stenosis calculations for carotid ultrasound studies are derived from validated velocity criteria which are known to correlate with the NASCET methodology. Electronically signed by: Valente Gonsalez MD (08/04/2019 3:21 PM) [place] [id number] DICTATED and SIGNED BY: VALENTE GONSALEZ MD DATE: 08/04/19 1521 Laboratory Tests Test 08/04/19 12:34 08/04/19 12:50 08/04/19 14:28 Glucose (Fingerstick) 99 mg/dL (70-99) White Blood Count 6.5 x10^3/uL (4.0-11.0) Red Blood Count 4.11 x10^6/uL (4.30-5.70) Hemoglobin 11.9 g/dL (13.0-17.5) Hematocrit 35.8 % (39.0-53.0) Mean Corpuscular Volume 87 fL (79-100) Mean Corpuscular Hemoglobin 29 pg (25-35) Mean Corpuscular Hemoglobin Concent 33 g/dL (31-37) Red Cell Distribution Width 16.3 % (11.5-14.5) Platelet Count 154 x10^3/uL (140-400) Neutrophils (%) (Auto) 70 % (31-73) Lymphocytes (%) (Auto) 20 % (24-48) Monocytes (%) (Auto) 7 % (0-9) Eosinophils (%) (Auto) 2 % (0-3) Basophils (%) (Auto) 1 % (0-3) Neutrophils # (Auto) 4.6 x10^3/uL (1.8-7.7) Lymphocytes # (Auto) 1.3 x10^3/uL (1.0-4.8) Monocytes # (Auto) 0.5 x10^3/uL (0.0-1.1) Eosinophils # (Auto) 0.1 x10^3/uL (0.0-0.7) Basophils # (Auto) 0.1 x10^3/uL (0.0-0.2) Prothrombin Time 22.9 SEC (11.7-14.0) Prothromb Time International Ratio 2.1 (0.8-1.1) Sodium Level 141 mmol/L (136-145) Potassium Level 4.5 mmol/L (3.5-5.1) Chloride Level 107 mmol/L (98-107) Carbon Dioxide Level 27 mmol/L (21-32) Anion Gap 7 (6-14) Blood Urea Nitrogen 25 mg/dL (8-26) Creatinine 1.5 mg/dL (0.7-1.3) Estimated GFR (Cockcroft-Gault) 44.4 BUN/Creatinine Ratio 17 (6-20) Glucose Level 99 mg/dL (70-99) Calcium Level 8.7 mg/dL (8.5-10.1) Magnesium Level 2.3 mg/dL (1.8-2.4) Total Bilirubin 0.9 mg/dL (0.2-1.0) Aspartate Amino Transf (AST/SGOT) 17 U/L (15-37) Alanine Aminotransferase (ALT/SGPT) 13 U/L (16-63) Alkaline Phosphatase 92 U/L (46-116) Troponin I Quantitative < 0.017 ng/mL (0.000-0.055) Total Protein 6.4 g/dL (6.4-8.2) Albumin 3.6 g/dL (3.4-5.0) Albumin/Globulin Ratio 1.3 (1.0-1.7) Urine Color Yellow Urine Clarity Clear Urine pH 6.0 Urine Specific [place] 1.015 Urine Protein Negative mg/dL (NEG-TRACE) Urine Glucose (UA) Negative mg/dL (NEG) Urine Ketones (Stick) Negative mg/dL (NEG) Urine Blood Negative (NEG) Urine Nitrite Negative (NEG) Urine Bilirubin Negative (NEG) Urine Urobilinogen Dipstick 1.0 mg/dL (0.2 mg/dL) Urine Leukocyte Esterase Negative (NEG) Urine RBC 0 /HPF (0-2) Urine WBC Occ /HPF (0-4) Urine Squamous Epithelial Cells Occ /LPF Urine Bacteria 0 /HPF (0-FEW) Urine Mucus Slight /LPF Assessment and Plan Assessmemt and Plan Problems Medical Problems: (1) TIA (transient ischemic attack) Status: Acute Comment Review of Relevant I have reviewed the following items ayanna (where applicable) has been applied. Labs Laboratory Tests Test 08/04/19 12:34 08/04/19 12:50 08/04/19 14:28 Glucose (Fingerstick) 99 mg/dL (70-99) White Blood Count 6.5 x10^3/uL (4.0-11.0) Red Blood Count 4.11 x10^6/uL (4.30-5.70) Hemoglobin 11.9 g/dL (13.0-17.5) Hematocrit 35.8 % (39.0-53.0) Mean Corpuscular Volume 87 fL (79-100) Mean Corpuscular Hemoglobin 29 pg (25-35) Mean Corpuscular Hemoglobin Concent 33 g/dL (31-37) Red Cell Distribution Width 16.3 % (11.5-14.5) Platelet Count 154 x10^3/uL (140-400) Neutrophils (%) (Auto) 70 % (31-73) Lymphocytes (%) (Auto) 20 % (24-48) Monocytes (%) (Auto) 7 % (0-9) Eosinophils (%) (Auto) 2 % (0-3) Basophils (%) (Auto) 1 % (0-3) Neutrophils # (Auto) 4.6 x10^3/uL (1.8-7.7) Lymphocytes # (Auto) 1.3 x10^3/uL (1.0-4.8) Monocytes # (Auto) 0.5 x10^3/uL (0.0-1.1) Eosinophils # (Auto) 0.1 x10^3/uL (0.0-0.7) Basophils # (Auto) 0.1 x10^3/uL (0.0-0.2) Prothrombin Time 22.9 SEC (11.7-14.0) Prothromb Time International Ratio 2.1 (0.8-1.1) Sodium Level 141 mmol/L (136-145) Potassium Level 4.5 mmol/L (3.5-5.1) Chloride Level 107 mmol/L (98-107) Carbon Dioxide Level 27 mmol/L (21-32) Anion Gap 7 (6-14) Blood Urea Nitrogen 25 mg/dL (8-26) Creatinine 1.5 mg/dL (0.7-1.3) Estimated GFR (Cockcroft-Gault) 44.4 BUN/Creatinine Ratio 17 (6-20) Glucose Level 99 mg/dL (70-99) Calcium Level 8.7 mg/dL (8.5-10.1) Magnesium Level 2.3 mg/dL (1.8-2.4) Total Bilirubin 0.9 mg/dL (0.2-1.0) Aspartate Amino Transf (AST/SGOT) 17 U/L (15-37) Alanine Aminotransferase (ALT/SGPT) 13 U/L (16-63) Alkaline Phosphatase 92 U/L (46-116) Troponin I Quantitative < 0.017 ng/mL (0.000-0.055) Total Protein 6.4 g/dL (6.4-8.2) Albumin 3.6 g/dL (3.4-5.0) Albumin/Globulin Ratio 1.3 (1.0-1.7) Urine Color Yellow Urine Clarity Clear Urine pH 6.0 Urine Specific [place] 1.015 Urine Protein Negative mg/dL (NEG-TRACE) Urine Glucose (UA) Negative mg/dL (NEG) Urine Ketones (Stick) Negative mg/dL (NEG) Urine Blood Negative (NEG) Urine Nitrite Negative (NEG) Urine Bilirubin Negative (NEG) Urine Urobilinogen Dipstick 1.0 mg/dL (0.2 mg/dL) Urine Leukocyte Esterase Negative (NEG) Urine RBC 0 /HPF (0-2) Urine WBC Occ /HPF (0-4) Urine Squamous Epithelial Cells Occ /LPF Urine Bacteria 0 /HPF (0-FEW) Urine Mucus Slight /LPF Laboratory Tests Test 08/04/19 12:34 08/04/19 12:50 08/04/19 14:28 Glucose (Fingerstick) 99 mg/dL (70-99) White Blood Count 6.5 x10^3/uL (4.0-11.0) Red Blood Count 4.11 x10^6/uL (4.30-5.70) Hemoglobin 11.9 g/dL (13.0-17.5) Hematocrit 35.8 % (39.0-53.0) Mean Corpuscular Volume 87 fL (79-100) Mean Corpuscular Hemoglobin 29 pg (25-35) Mean Corpuscular Hemoglobin Concent 33 g/dL (31-37) Red Cell Distribution Width 16.3 % (11.5-14.5) Platelet Count 154 x10^3/uL (140-400) Neutrophils (%) (Auto) 70 % (31-73) Lymphocytes (%) (Auto) 20 % (24-48) Monocytes (%) (Auto) 7 % (0-9) Eosinophils (%) (Auto) 2 % (0-3) Basophils (%) (Auto) 1 % (0-3) Neutrophils # (Auto) 4.6 x10^3/uL (1.8-7.7) Lymphocytes # (Auto) 1.3 x10^3/uL (1.0-4.8) Monocytes # (Auto) 0.5 x10^3/uL (0.0-1.1) Eosinophils # (Auto) 0.1 x10^3/uL (0.0-0.7) Basophils # (Auto) 0.1 x10^3/uL (0.0-0.2) Prothrombin Time 22.9 SEC (11.7-14.0) Prothromb Time International Ratio 2.1 (0.8-1.1) Sodium Level 141 mmol/L (136-145) Potassium Level 4.5 mmol/L (3.5-5.1) Chloride Level 107 mmol/L (98-107) Carbon Dioxide Level 27 mmol/L (21-32) Anion Gap 7 (6-14) Blood Urea Nitrogen 25 mg/dL (8-26) Creatinine 1.5 mg/dL (0.7-1.3) Estimated GFR (Cockcroft-Gault) 44.4 BUN/Creatinine Ratio 17 (6-20) Glucose Level 99 mg/dL (70-99) Calcium Level 8.7 mg/dL (8.5-10.1) Magnesium Level 2.3 mg/dL (1.8-2.4) Total Bilirubin 0.9 mg/dL (0.2-1.0) Aspartate Amino Transf (AST/SGOT) 17 U/L (15-37) Alanine Aminotransferase (ALT/SGPT) 13 U/L (16-63) Alkaline Phosphatase 92 U/L (46-116) Troponin I Quantitative < 0.017 ng/mL (0.000-0.055) Total Protein 6.4 g/dL (6.4-8.2) Albumin 3.6 g/dL (3.4-5.0) Albumin/Globulin Ratio 1.3 (1.0-1.7) Urine Color Yellow Urine Clarity Clear Urine pH 6.0 Urine Specific [place] 1.015 Urine Protein Negative mg/dL (NEG-TRACE) Urine Glucose (UA) Negative mg/dL (NEG) Urine Ketones (Stick) Negative mg/dL (NEG) Urine Blood Negative (NEG) Urine Nitrite Negative (NEG) Urine Bilirubin Negative (NEG) Urine Urobilinogen Dipstick 1.0 mg/dL (0.2 mg/dL) Urine Leukocyte Esterase Negative (NEG) Urine RBC 0 /HPF (0-2) Urine WBC Occ /HPF (0-4) Urine Squamous Epithelial Cells Occ /LPF Urine Bacteria 0 /HPF (0-FEW) Urine Mucus Slight /LPF Medications Current Medications Sodium Chloride 1,000 ml @ 100 mls/hr Q10H IV Last administered on 08/04/19at 13:19; Start 08/04/19 at 12:40; Stop 08/04/19 at 22:39; Status DC Amiodarone HCl (Cordarone) 200 mg DAILY PO ; Start 08/05/19 at 09:00 Folic Acid (Folic Acid) 1 mg DAILY PO ; Start 08/05/19 at 09:00 Furosemide (Lasix) 40 mg DAILY PO ; Start 08/05/19 at 09:00 Levetiracetam (Keppra) 500 mg BID PO Last administered on 08/04/19at 21:44; Start 08/04/19 at 21:00 Potassium Chloride (Klor-Con) 10 meq DAILY PO ; Start 08/05/19 at 09:00 Terazosin HCl (Hytrin) 10 mg HS PO Last administered on 08/04/19at 21:44; Start 08/04/19 at 21:00 Warfarin Sodium (Coumadin) 3 mg DAILY16 PO ; Start 08/04/19 at 16:00 Cyanocobalamin (Vitamin B-12) 1,000 mcg DAILY PO ; Start 08/05/19 at 09:00 Thiamine Mononitrate (Vitamin B-1) 250 mg DAILY PO ; Start 08/05/19 at 09:00 Temazepam (Restoril) 7.5 mg PRN QHS PRN PO INSOMNIA Last administered on 08/04/19at 21:44; Start 08/04/19 at 14:30 Acetaminophen (Tylenol) 500 mg PRN Q6HRS PRN PO MILD PAIN / TEMP; Start 08/04/19 at 14:30 Ondansetron HCl (Zofran) 4 mg PRN Q6HRS PRN IVP NAUSEA/VOMITING; Start 08/04/19 at 14:30 Active Scripts Active Keflex (Cephalexin) 500 Mg Capsule 500 Mg PO TID 7 Days Reported Toprol Xl (Metoprolol Succinate) 25 Mg Tab.er.24h 25 Mg PO DAILY Warfarin Sodium 3 Mg Tablet 3 Mg PO DAILY16 Lasix (Furosemide) 40 Mg Tablet 1 Tab PO DAILY Potassium Chloride 10 Meq Capsule.er 1 Cap PO DAILY Keppra (Levetiracetam) 500 Mg Tablet 1 Tab PO BID Thiamine Hcl 250 Mg Tablet 250 Mg PO DAILY Terazosin Hcl 5 Mg Capsule 10 Mg PO HS Vitamin B-12 (Cyanocobalamin (Vitamin B-12)) 1,000 Mcg Tablet.er 1,000 Mcg PO DAILY Folic Acid 1 Mg Tablet 1 Mg PO DAILY Vitals/I & O Vital Sign - Last 24 Hours 08/04/19 08/04/19 08/04/19 08/04/19 12:30 13:06 13:16 13:41 Temp 97.9 97.9 Pulse 84 80 78 75 Resp 18 18 18 17 B/P (MAP) 118/68 (85) 113/74 (87) 117/73 (88) 122/85 (97) Pulse Ox 100 100 96 99 O2 Delivery Room Air Room Air Room Air Room Air 9/2708/04/19 08/04/19 08/04/19 14:11 14:41 15:11 15:41 Pulse 77 78 73 72 Resp 18 18 19 18 B/P (MAP) 119/81 (94) 123/85 (98) 143/83 (103) 139/87 (104) Pulse Ox 98 99 99 99 O2 Delivery Room Air Room Air Room Air Room Air 08/04/19 08/04/19 08/04/19 08/04/19 16:11 17:27 19:46 20:24 Temp 97.7 97.7 Pulse 75 84 Resp 18 20 B/P (MAP) 151/83 (105) 140/97 (111) Pulse Ox 99 98 O2 Delivery Room Air Room Air Room Air Room Air 08/04/19 08/04/19 08/05/19 08/05/19 21:44 23:31 03:58 07:30 Temp 97.4 98.0 97.4 97.4 98.0 97.4 Pulse 84 96 90 91 Resp 16 16 20 B/P (MAP) 140/97 122/81 (95) 118/80 (93) 145/93 (110) Pulse Ox 95 94 95 O2 Delivery Room Air Room Air Room Air Intake and Output 08/04/19 08/04/19 08/05/19 15:00 23:00 07:00 Intake Total 240 ml Balance 240 ml REGINALDO MARIA MD Aug 05, 2019 08:38
[2019-08-05] MEDS: levETIRAcetam 500 MG TABLET PO SCH (08:51)
[2019-08-05] MEDS: AMIODARONE HCL 200 MG TABLET. PO SCH ×2 (08:51→09:00)
[2019-08-05 09:00] VITALS: BP 145/93
[2019-08-05] MEDS ORDERED: FUROSEMIDE 40 MG TABLET. PO SCH (09:00)
[2019-08-05] MEDS ORDERED: POTASSIUM CHLORIDE 10 MEQ TABLET.ER. PO SCH (09:00)
[2019-08-05] MEDS ORDERED: THIAMINE 100 MG TABLET. PO SCH (09:00)
[2019-08-05] MEDS ORDERED: FOLIC ACID 1 MG TABLET. PO SCH (09:00)
[2019-08-05] MEDS ORDERED: CYANOCOBALAMIN (VITAMIN B-12) 1,000 MCG TABLET. PO SCH (09:00)
--- NOTE | 2019-08-05 10:09 | NUR ---
Pt anxious about leaving. Discussed with pt orders for neurology consult. Asked pt to wait till neurology came and saw him. Pt refused and signed AMA paperwork. Walked out by security and transportation provided by family.
--- NOTE | 2019-08-05 11:19 | PDOC3 ---
Discharge Summary Date of Admission: Aug 04, 2019 Date of Discharge: Aug 05, 2019 Follow-Up: 3-5 days Admitting Diagnosis comment: DISCHARGE DX Assessment/Plan TIA symptoms namely slurred speech and facial droop POA on doppler , 08/04 Mild to moderate plaque at both carotid bifurcations with no evidence of hemodynamically significant carotid stenosis. History ASav harris on Coumadin History hypertension stable History of UTI with urinary retention Indwelling pacer for Manjeet harris Mitral stenosis mild NONCOMPLIANCE PLAN: resume home meds, med telemetry floor, consult neurology, echocardiogram, carotid ultrasound CArdiac diet Full code Other supportive meds Continue warfarin check an INR while in-house PT OT echo today neurology consult pending patient chose to leave AMA D/C PLANNING 22 MIN Vitals Vitals Vital Signs Date Time Temp Pulse Resp B/P (MAP) Pulse Ox O2 Delivery O2 Flow Rate FiO2 08/05/19 07:30 97.4 91 20 145/93 (110) 95 Room Air 97.4 Physical Exam General: Alert, Oriented X3, Cooperative, No acute distress Lungs: Clear, Other Abdomen: Normal bowel sounds, Soft, No tenderness, No hepatosplenomegaly, No masses Extremities: No clubbing, No cyanosis, No edema, Normal pulses, No tenderness/swelling Skin: No rashes, No breakdown, No significant lesion Labs LABS APPROVED REPORT EXAM: Two-dimensional and M-mode echocardiogram with Doppler and color Doppler. Other Information Quality : Technically LimitedLimitedTechnically Limited HR: 45bpm Rhythm : Bradycardia INDICATION Congestive Heart Failure 2D DIMENSIONS RVDd 2.6 (2.9-3.5cm) Left Atrium(2D) 4.5 (1.6-4.0cm) IVSd 1.3 (0.7-1.1cm) Aortic Root(2D) 3.6 (2.0-3.7cm) LVDd 5.2 (3.9-5.9cm) LVOT Diameter 2.4 (1.8-2.4cm) PWd 1.1 (0.7-1.1cm) LVDs 3.4 (2.5-4.0cm) FS (%) 34.8 % SV 81.2 ml Aortic Valve AoV Peak Jatin. 219.9cm/s AoV VTI 43.2cm AO Peak GR. 19.3mmHg LVOT VTI 14.43cm AO Mean GR. 11mmHg CHRIST (VTI) 2.30cm2 Mitral Valve MV E Velocity 135.5cm/s MV E Peak Gr. 11mmHg MV DECEL TIME 424ms MV A Velocity 47.4cm/s MV E Mean Gr. 3mmHg E/A Ratio 2.9 Tricuspid Valve TR P. Velocity 226cm/s RAP ESTIMATE 3mmHg TR Peak Gr. 20mmHg RVSP 23mmHg LEFT VENTRICLE The left ventricle is normal size. There is mild concentric left ventricular hypertrophy. The left ventricular systolic function is normal and the ejection fraction is within normal range. The Ejection Fraction is 50-55%. There is normal LV segmental wall motion. Transmitral Doppler flow pattern is abnormal. RIGHT VENTRICLE The right ventricle is normal size. There is normal right ventricular wall thickness. The right ventricular systolic function is normal. ATRIA The left atrium is mildly dilated. The right atrium size is normal. The interatrial septum is intact with no evidence for an atrial septal defect or patent foramen ovale as noted on 2-D or Doppler imaging. AORTIC VALVE The aortic valve is calcified but opens well. The aortic valve is trileaflet. Doppler and Color Flow revealed no significant aortic regurgitation. There is no significant aortic valvular stenosis. MITRAL VALVE Mitral valve apears repaired. There is no evidence of mitral valve prolapse. There is mild mitral valve stenosis with maximum pressure gradient of 11 mmHg and mean pressure gradient of 2.6 mmHg. Doppler and Color-flow revealed trace mitral regurgitation. TRICUSPID VALVE The tricuspid valve is normal in structure and function. Doppler and Color Flow revealed trace tricuspid regurgitation. The PA pressure was estimated at 23 mmHg. There is no tricuspid valve prolapse or vegetation. There is no tricuspid valve stenosis. PULMONIC VALVE The pulmonary valve is normal in structure and function. Doppler and Color Flow revealed trace pulmonic valvular regurgitation. There is no pulmonic valvular stenosis. GREAT VESSELS The aortic root is normal in size. The ascending aorta is normal in size. PERICARDIAL EFFUSION There is no evidence of significant pericardial effusion. Critical Notification Critical Value: No <Conclusion> The left ventricle is normal size. The left ventricular systolic function is normal and the ejection fraction is within normal range. The Ejection Fraction is 50-55%. There is mild concentric left ventricular hypertrophy. There is no significant aortic valvular stenosis. Doppler and Color Flow revealed no significant aortic regurgitation. Doppler and Color-flow revealed trace mitral regurgitation. Doppler and Color Flow revealed trace tricuspid regurgitation. The PA pressure was estimated at 23 mmHg. Signed by : Carlo Coleman MD Electronically Approved : 12/18/2018 16:01:54 Carotid Doppler dated 08/04/2019. Comparison none. Clinical Indication: TIA. Findings: Grayscale, color flow and spectral waveform analysis was performed. Mild to moderate plaque at both carotid bifurcations, left greater than right. No focal stenosis. The waveforms are within normal limits. Flow within the bilateral vertebral arteries is antegrade. Velocity measurements are as follows (centimeters per second ) Peak systolic velocity right left ICA 81 95 EDV 30 21 CCA 68 77 ICA/CCA ratio 1.4 1.2 Impression: Mild to moderate plaque at both carotid bifurcations with no evidence of hemodynamically significant carotid stenosis. Stenosis calculations for carotid ultrasound studies are derived from validated velocity criteria which are known to correlate with the NASCET methodology. Electronically signed by: Valente Gonsalez MD (08/04/2019 3:21 PM) [facility] DICTATED and SIGNED BY: VALENTE GONSALEZ MD DATE: 08/04/19 152 FINAL DIAGNOSIS Problems Medical Problems: (1) TIA (transient ischemic attack) Status: Acute Brief Hospital Course Mr. Henriquez is a 84 old [sex] who presented with [ TIA] Discharge Medications Current Medications Sodium Chloride 1,000 ml @ 100 mls/hr Q10H IV Last administered on 08/04/19at 13:19; Start 08/04/19 at 12:40; Stop 08/04/19 at 22:39; Status DC Amiodarone HCl (Cordarone) 200 mg DAILY PO ; Start 08/05/19 at 09:00; Stop 08/05/19 at 10:21; Status DC Folic Acid (Folic Acid) 1 mg DAILY PO Last administered on 08/05/19at 08:52; Start 08/05/19 at 09:00; Stop 08/05/19 at 10:21; Status DC Furosemide (Lasix) 40 mg DAILY PO Last administered on 08/05/19at 08:51; Start 08/05/19 at 09:00; Stop 08/05/19 at 10:21; Status DC Levetiracetam (Keppra) 500 mg BID PO Last administered on 08/05/19at 08:51; Start 08/04/19 at 21:00; Stop 08/05/19 at 10:21; Status DC Potassium Chloride (Klor-Con) 10 meq DAILY PO Last administered on 08/05/19at 08:52; Start 08/05/19 at 09:00; Stop 08/05/19 at 10:21; Status DC Terazosin HCl (Hytrin) 10 mg HS PO Last administered on 08/04/19at 21:44; Start 08/04/19 at 21:00; Stop 08/05/19 at 10:21; Status DC Warfarin Sodium (Coumadin) 3 mg DAILY16 PO ; Start 08/04/19 at 16:00; Stop 08/05/19 at 10:21; Status DC Cyanocobalamin (Vitamin B-12) 1,000 mcg DAILY PO Last administered on 08/05/19at 08:51; Start 08/05/19 at 09:00; Stop 08/05/19 at 10:21; Status DC Thiamine Mononitrate (Vitamin B-1) 250 mg DAILY PO Last administered on 08/05/19at 08:51; Start 08/05/19 at 09:00; Stop 08/05/19 at 10:21; Status DC Temazepam (Restoril) 7.5 mg PRN QHS PRN PO INSOMNIA Last administered on 08/04/19at 21:44; Start 08/04/19 at 14:30; Stop 08/05/19 at 10:21; Status DC Acetaminophen (Tylenol) 500 mg PRN Q6HRS PRN PO MILD PAIN / TEMP; Start 08/04/19 at 14:30; Stop 08/05/19 at 10:21; Status DC Ondansetron HCl (Zofran) 4 mg PRN Q6HRS PRN IVP NAUSEA/VOMITING; Start 08/04/19 at 14:30; Stop 08/05/19 at 10:21; Status DC Active Scripts Active Keflex (Cephalexin) 500 Mg Capsule 500 Mg PO TID 7 Days Reported Toprol Xl (Metoprolol Succinate) 25 Mg Tab.er.24h 25 Mg PO DAILY Warfarin Sodium 3 Mg Tablet 3 Mg PO DAILY16 Lasix (Furosemide) 40 Mg Tablet 1 Tab PO DAILY Potassium Chloride 10 Meq Capsule.er 1 Cap PO DAILY Keppra (Levetiracetam) 500 Mg Tablet 1 Tab PO BID Thiamine Hcl 250 Mg Tablet 250 Mg PO DAILY Terazosin Hcl 5 Mg Capsule 10 Mg PO HS Vitamin B-12 (Cyanocobalamin (Vitamin B-12)) 1,000 Mcg Tablet.er 1,000 Mcg PO DAILY Folic Acid 1 Mg Tablet 1 Mg PO DAILY Vital Signs Vital Signs Date Time Temp Pulse Resp B/P (MAP) Pulse Ox O2 Delivery O2 Flow Rate FiO2 08/05/19 09:00 91 145/93 08/05/19 08:00 Room Air 08/05/19 07:30 97.4 20 95 97.4 Labs Laboratory Tests Test 08/04/19 12:34 08/04/19 12:50 08/04/19 14:28 Glucose (Fingerstick) 99 mg/dL (70-99) White Blood Count 6.5 x10^3/uL (4.0-11.0) Red Blood Count 4.11 x10^6/uL (4.30-5.70) Hemoglobin 11.9 g/dL (13.0-17.5) Hematocrit 35.8 % (39.0-53.0) Mean Corpuscular Volume 87 fL (79-100) Mean Corpuscular Hemoglobin 29 pg (25-35) Mean Corpuscular Hemoglobin Concent 33 g/dL (31-37) Red Cell Distribution Width 16.3 % (11.5-14.5) Platelet Count 154 x10^3/uL (140-400) Neutrophils (%) (Auto) 70 % (31-73) Lymphocytes (%) (Auto) 20 % (24-48) Monocytes (%) (Auto) 7 % (0-9) Eosinophils (%) (Auto) 2 % (0-3) Basophils (%) (Auto) 1 % (0-3) Neutrophils # (Auto) 4.6 x10^3/uL (1.8-7.7) Lymphocytes # (Auto) 1.3 x10^3/uL (1.0-4.8) Monocytes # (Auto) 0.5 x10^3/uL (0.0-1.1) Eosinophils # (Auto) 0.1 x10^3/uL (0.0-0.7) Basophils # (Auto) 0.1 x10^3/uL (0.0-0.2) Prothrombin Time 22.9 SEC (11.7-14.0) Prothromb Time International Ratio 2.1 (0.8-1.1) Sodium Level 141 mmol/L (136-145) Potassium Level 4.5 mmol/L (3.5-5.1) Chloride Level 107 mmol/L (98-107) Carbon Dioxide Level 27 mmol/L (21-32) Anion Gap 7 (6-14) Blood Urea Nitrogen 25 mg/dL (8-26) Creatinine 1.5 mg/dL (0.7-1.3) Estimated GFR (Cockcroft-Gault) 44.4 BUN/Creatinine Ratio 17 (6-20) Glucose Level 99 mg/dL (70-99) Calcium Level 8.7 mg/dL (8.5-10.1) Magnesium Level 2.3 mg/dL (1.8-2.4) Total Bilirubin 0.9 mg/dL (0.2-1.0) Aspartate Amino Transf (AST/SGOT) 17 U/L (15-37) Alanine Aminotransferase (ALT/SGPT) 13 U/L (16-63) Alkaline Phosphatase 92 U/L (46-116) Troponin I Quantitative < 0.017 ng/mL (0.000-0.055) Total Protein 6.4 g/dL (6.4-8.2) Albumin 3.6 g/dL (3.4-5.0) Albumin/Globulin Ratio 1.3 (1.0-1.7) Urine Color Yellow Urine Clarity Clear Urine pH 6.0 Urine Specific [place] 1.015 Urine Protein Negative mg/dL (NEG-TRACE) Urine Glucose (UA) Negative mg/dL (NEG) Urine Ketones (Stick) Negative mg/dL (NEG) Urine Blood Negative (NEG) Urine Nitrite Negative (NEG) Urine Bilirubin Negative (NEG) Urine Urobilinogen Dipstick 1.0 mg/dL (0.2 mg/dL) Urine Leukocyte Esterase Negative (NEG) Urine RBC 0 /HPF (0-2) Urine WBC Occ /HPF (0-4) Urine Squamous Epithelial Cells Occ /LPF Urine Bacteria 0 /HPF (0-FEW) Urine Mucus Slight /LPF Laboratory Tests Test 08/04/19 12:34 08/04/19 12:50 08/04/19 14:28 Glucose (Fingerstick) 99 mg/dL (70-99) White Blood Count 6.5 x10^3/uL (4.0-11.0) Red Blood Count 4.11 x10^6/uL (4.30-5.70) Hemoglobin 11.9 g/dL (13.0-17.5) Hematocrit 35.8 % (39.0-53.0) Mean Corpuscular Volume 87 fL (79-100) Mean Corpuscular Hemoglobin 29 pg (25-35) Mean Corpuscular Hemoglobin Concent 33 g/dL (31-37) Red Cell Distribution Width 16.3 % (11.5-14.5) Platelet Count 154 x10^3/uL (140-400) Neutrophils (%) (Auto) 70 % (31-73) Lymphocytes (%) (Auto) 20 % (24-48) Monocytes (%) (Auto) 7 % (0-9) Eosinophils (%) (Auto) 2 % (0-3) Basophils (%) (Auto) 1 % (0-3) Neutrophils # (Auto) 4.6 x10^3/uL (1.8-7.7) Lymphocytes # (Auto) 1.3 x10^3/uL (1.0-4.8) Monocytes # (Auto) 0.5 x10^3/uL (0.0-1.1) Eosinophils # (Auto) 0.1 x10^3/uL (0.0-0.7) Basophils # (Auto) 0.1 x10^3/uL (0.0-0.2) Prothrombin Time 22.9 SEC (11.7-14.0) Prothromb Time International Ratio 2.1 (0.8-1.1) Sodium Level 141 mmol/L (136-145) Potassium Level 4.5 mmol/L (3.5-5.1) Chloride Level 107 mmol/L (98-107) Carbon Dioxide Level 27 mmol/L (21-32) Anion Gap 7 (6-14) Blood Urea Nitrogen 25 mg/dL (8-26) Creatinine 1.5 mg/dL (0.7-1.3) Estimated GFR (Cockcroft-Gault) 44.4 BUN/Creatinine Ratio 17 (6-20) Glucose Level 99 mg/dL (70-99) Calcium Level 8.7 mg/dL (8.5-10.1) Magnesium Level 2.3 mg/dL (1.8-2.4) Total Bilirubin 0.9 mg/dL (0.2-1.0) Aspartate Amino Transf (AST/SGOT) 17 U/L (15-37) Alanine Aminotransferase (ALT/SGPT) 13 U/L (16-63) Alkaline Phosphatase 92 U/L (46-116) Troponin I Quantitative < 0.017 ng/mL (0.000-0.055) Total Protein 6.4 g/dL (6.4-8.2) Albumin 3.6 g/dL (3.4-5.0) Albumin/Globulin Ratio 1.3 (1.0-1.7) Urine Color Yellow Urine Clarity Clear Urine pH 6.0 Urine Specific [place] 1.015 Urine Protein Negative mg/dL (NEG-TRACE) Urine Glucose (UA) Negative mg/dL (NEG) Urine Ketones (Stick) Negative mg/dL (NEG) Urine Blood Negative (NEG) Urine Nitrite Negative (NEG) Urine Bilirubin Negative (NEG) Urine Urobilinogen Dipstick 1.0 mg/dL (0.2 mg/dL) Urine Leukocyte Esterase Negative (NEG) Urine RBC 0 /HPF (0-2) Urine WBC Occ /HPF (0-4) Urine Squamous Epithelial Cells Occ /LPF Urine Bacteria 0 /HPF (0-FEW) Urine Mucus Slight /LPF Allergies Allergies Coded Allergies Type Severity Reaction Last Updated Verified No Known Drug Allergies 12/24/18 No Disposition/Orders: D/C to Home, Other (LEFT AMA) Patient Instructions D/C PLANNING 22 MIN REGINALDO MARIA MD Aug 05, 2019 11:19
--- NOTE | 2019-08-05 11:22 | DISCH ---
DISCHARGE INSTRUCTIONS Condition on Discharge Condition on Discharge: Guarded Activity After Discharge Activity Instructions for Disc: Other, see below Bathing Instructions: Shower-keep dressing dry Lifting Instructions after Dis: No pulling or pushing, Do not lift >10 pounds Exercise Instruction after Dis: Progress as tolerated Driving Instructions after Dis: Do not drive Weight Bearing Status after Di: Non weight bearing Diet after Discharge Diet after Discharge: Cardiac, Regular Diet Texture: Regular Liquid Texture: Thin Liquid Swallowing Supervision: None needed Wound Incision Care Wound/Incision Care: Keep wound/cast CDI, Routine catheter care Wound Care Equipment: Dressings Checks after Discharge Checks after discharge: Check blood press - daily Contacting the DR. after DC Call your doctor for: If your condition worsens Treatment/Equipment after DC Adaptive Equipment Issued: None REGINALDO MARIA MD Aug 05, 2019 11:22
== END 2019-08-05 09:45 | disposition left against medical advice (07) | DRG 69 ==
LOC: ER 12:23 → ED HOLD 15:35 → 6 SOUTH 16:46
PROVIDERS: ADMIT Internal Medicine; ATTEND Internal Medicine
DX: G45.9 Transient cerebral ischemic attack, unspecified (principal); Z96.659 Presence of unspecified artificial knee joint; Z96.649 Presence of unspecified artificial hip joint; R29.810 Facial weakness; R47.81 Slurred speech; I05.0 Rheumatic mitral stenosis; I48.91 Unspecified atrial fibrillation; I10 Essential (primary) hypertension; I25.10 Atherosclerotic heart disease of native coronary artery without angina pectoris; Z95.0 Presence of cardiac pacemaker; Z91.19 Patient's noncompliance with other medical treatment and regimen; Z79.01 Long term (current) use of anticoagulants; Z87.440 Personal history of urinary (tract) infections
CPT/HCPCS: 36415; 70450; 80053; 81001; 82962; 83735; 84484; 85025; 85610; 93005; 93880; J7030; 99285-25; G0378

== ENCOUNTER 2019-09-21 08:13 | Observation (INO) | payer OTHER ==
[~2019-09-21] VITALS: Ht 182.9 cm; Wt 96.3 kg
[2019-09-21] VITALS (18 sets, daily range): BP systolic 98–166; BP diastolic 71–99
[~2019-09-21 08:13] MED LIST changes: +METO25TA2 PO
[2019-09-21] MEDS ORDERED: RANI300C PO (08:35)
[2019-09-21] MEDS ORDERED: AMIO200T4 PO (08:35)
[2019-09-21 08:42] LABS: HEMATOCRIT 39.6 % (39.0-53.0); HEMOGLOBIN 12.7 g/dL (13.0-17.5); RED BLOOD COUNT 4.51 x10^6/uL (4.30-5.70); RED CELL DISTRIBUTION WIDTH 15.8 % (11.5-14.5)
[2019-09-21] MEDS ORDERED: METO25TA4 PO (08:45)
[2019-09-21 08:59] LABS: CALCIUM 8.7 mg/dL (8.5-10.1); CREATININE 1.5 mg/dL (0.7-1.3); GFR 44.4; POTASSIUM 4.1 mmol/L (3.5-5.1)
[2019-09-21] MEDS ORDERED: MIDAZOLAM HCL/PF 2 MG/2 ML VIAL. ONE (09:40)
[2019-09-21] MEDS ORDERED: fentaNYL PF VIAL 100 MCG/2 ML VIAL ONE (09:40)
[2019-09-21] MEDS ORDERED: HEPARIN for IV BOLUS 10,000 UNIT/10 ML VIAL. ONE (09:41)
[2019-09-21] MEDS ORDERED: VERAPAMIL 5 MG/2 ML VIAL. ONE (09:41)
[2019-09-21] MEDS ORDERED: NITROGLYCERIN 200 MCG/2 ML SYRINGE FOR CATH/VASC LAB. ONE (09:41)
[2019-09-21] MEDS ORDERED: LIDOCAINE 1% PF 2 ML VIAL. ONE (09:57)
[2019-09-21] MEDS ORDERED: IODIXANOL 320 MG/ML 100 ML VIAL. ONE (09:57)
[2019-09-21] MEDS ORDERED: IODIXANOL 320 MG/ML 100 ML VIAL. IART ONE (10:15)
[2019-09-21] MEDS ORDERED: VERAPAMIL 5 MG/2 ML VIAL. IART ONE (10:15)
[2019-09-21] MEDS ORDERED: MIDAZOLAM HCL/PF 2 MG/2 ML VIAL. IV ONE (10:15)
[2019-09-21] MEDS ORDERED: NITROGLYCERIN 200 MCG/2 ML SYRINGE FOR CATH/VASC LAB. IART ONE (10:15)
[2019-09-21] MEDS ORDERED: LIDOCAINE 1% PF 2 ML VIAL. INJ ONE (10:15)
[2019-09-21] MEDS ORDERED: HEPARIN for IV BOLUS 10,000 UNIT/10 ML VIAL. IART ONE (10:15)
[2019-09-21] MEDS ORDERED: fentaNYL PF VIAL 100 MCG/2 ML VIAL IV ONE (10:15)
[2019-09-21] MEDS ORDERED: BIVALIRUDIN 250 MG VIAL. IV ONE ×2 (10:43→11:00)
[2019-09-21] MEDS ORDERED: LIDOCAINE 1% Multi-Dose 20 ML VIAL. ONE (10:43)
[2019-09-21] MEDS ORDERED: IV NORMAL SALINE 1000ML BAG 1,000 ML IV ONE (11:15)
[2019-09-21] MEDS ORDERED: ASPIRIN 325 MG TABLET PO ONE (11:30)
[2019-09-21] MEDS ORDERED: PRASUGREL 10 MG TABLET. PO ONE (11:30)
--- NOTE | 2019-09-21 13:48 | CARD ---
MR#: [id number] Date of Study: 09/21/2019 Ordering Physician: NOVA THOMAS, Referring Physician: NOVA THOMAS, Tech: RT Jenna (R) NICHELLE APPROVED REPORT Technologist: Dipti Garcia RT (R) NICHELLE Nurse: Ivon David RN Procedure(s) performed: FLUORO TIME:11.1 MIN DOSE: 185 Gycm2 CONTRAST: 153 VISI MODERATE SEDATION: 65 MIN LHC, Coronary angiography, PCI of the 1st diagonal HISTORY The patient is a 84 year-old male with a history of : coronary artery disease, hypertension, dyslipid emia. INDICATION The indication(s) include : unstable angina , dyspnea. CSHA Clinical Frailty Scale CS Clinical Frailty Scale: Mildly Frail Heart Failure Heart Failure: Yes If Yes, Newly Diagnosed: No If Yes, HF Type: Diastolic If Yes, NYHA Class: Class II PROCEDURE NARRATIVE Clinical indication: 84-year-old man with multiple medical problems who has had persistent worsening exertional dyspnea an d chest pressure was brought to the catheterization laboratory for further evaluation and treatment. Access: Initial access was obtained in the right radial artery via a modified Seldinger technique using a genet ropuncture kit. Due to significant subclavian tortuosity and spasm the PCI was performed via a right common femoral arterial access. Diagnostic angiography: A 6 [place] Citizen JR4 and a TIG catheters were used for diagnostic angiography. Left ventricular end diastol ic pressure was obtained with a JR4 catheter. FINDINGS: Hemodynamics: Aortic pressure: 138/86 LVEDP 9 mm hg CORONARY ANGIOGRAPHY: LM: Large caliber vessel with normal angiographic appearance. LAD: Large caliber vessel with a mid 40-50% stenosis. D1: Large caliber vessel with an ostial 90% stenosis. Ramus: Large caliber vessel with a mid 40-50% stenosis. LCx: Small caliber vessel with mild diffuse irregularities. RCA: Large caliber dominant vessel with mild diffuse luminal irregularities. RPDA: Moderate caliber vessel with normal angiographic appearance. INTERVENTIONAL TECHNIQUE: Due to the patient's persistent dyspnea and chest pressure and a large caliber diagonal vessel with g reater than 90% stenosis A intervention was planned. Bivalirudin was used for anticoagulation. Throug h a 6 [place] Citizen EBU 3.5 guide catheter a pro-water wire was placed in the LAD and a second pro-water wir e was placed in the first diagonal vessel. Balloon angioplasty was performed with a 3 x 8 mm balloon and the lesion was then stented with a 3.5 x 12 mm Xience VEENA at 13 vicenta. final angiography demonstrat ed excellent stent expansion with HORTENCIA-3 flow in the diagonal and the LAD. The previously noted 40-50 % LAD stenosis initially appeared slightly worse but repeat angiography after nitroglycerin administr ation did not reveal any significant dissection, plaque shift or new lesions. This was a complex case due to significant subclavian tortuosity requiring alternative access. HORTENCIA Flow HORTENCIA Flow (Pre-Intervention): HORTENCIA-3 HORTENCIA Flow (Post-Intervention): HORTENCIA-3 Conclusion 1. Normal left sided filling pressures. 2. Two vessel CAD 3. Successful PCI of the 1st diagonal with a 3.5/12 mm VEENA Recommendations Prasugrel 10mg daily x 30 days, then switch to Plavix. Continue home warfarin Stop ASA after discharge. Continue statin therapy and BP mgmt. Cardiac rehab referral. Signed by : Nova Thomas, Electronically Approved : 09/21/2019 13:47:31
[2019-09-21] MEDS ORDERED: LIDOCAINE 2% 100 MG/5 ML SYRINGE. IV PRN (14:15)
[2019-09-21] MEDS ORDERED: 0.9 % SODIUM CHLORIDE 10 ML DISP.SYRIN. IV PRN (14:15)
[2019-09-21] MEDS ORDERED: ACETAMINOPHEN 325 MG TABLET. PO PRN (14:15)
[2019-09-21] MEDS ORDERED: AMIODARONE 150 MG in IV DEXTROSE 5% 100ML 100 ML IV PRN (14:15)
[2019-09-21] MEDS ORDERED: fentaNYL PF VIAL 100 MCG/2 ML VIAL IV PRN (14:15)
[2019-09-21] MEDS ORDERED: NITROGLYCERIN SUBLINGUAL 0.4 MG BOTTLE OF 25. SL PRN (14:15)
[2019-09-21] MEDS ORDERED: ATROPINE 0.5 MG/5 ML DISP.SYRINGE. IV PRN (14:15)
[2019-09-21] MEDS ORDERED: WARFARIN 3 MG TABLET. PO SCH (17:30)
[2019-09-21] MEDS: METOPROLOL TART IMMED RELEASE 25 MG TABLET. PO SCH (20:34)
[2019-09-21] MEDS ORDERED: TERAZOSIN 1 MG CAPSULE. PO SCH (21:00)
[2019-09-21] MEDS ORDERED: ATORVASTATIN CALCIUM 20 MG TABLET PO SCH (21:00)
[2019-09-22 03:00] VITALS: BP 140/86
[2019-09-22 07:00] VITALS: BP 160/97
[2019-09-22] MEDS ORDERED: PRASUGREL 10 MG TABLET. PO SCH (08:00)
[2019-09-22] MEDS: METOPROLOL TART IMMED RELEASE 25 MG TABLET. PO SCH (08:44)
[2019-09-22] MEDS ORDERED: CYANOCOBALAMIN (VITAMIN B-12) 1,000 MCG TABLET. PO SCH (09:00)
[2019-09-22] MEDS ORDERED: FAMOTIDINE 20 MG TABLET. PO SCH (09:00)
[2019-09-22 10:57] VITALS: BP 136/78
--- NOTE | 2019-09-22 11:20 | PDOC3 ---
Discharge Summary Visit Information Date of Admission: Sep 21, 2019 Date of Discharge: Sep 22, 2019 Admitting Diagnosis: Exertional dyspnea, UA features, PPM, AFIB Final Diagnosis CAD, S/P PCI, AFIB, PPM Brief Hospital Course Allergies Allergies Coded Allergies Type Severity Reaction Last Updated Verified No Known Drug Allergies 12/24/18 No Vital Signs Vital Signs Date Time Temp Pulse Resp B/P (MAP) Pulse Ox O2 Delivery O2 Flow Rate FiO2 09/22/19 10:57 98.7 69 16 136/78 (97) 96 Room Air 98.7 09/21/19 11:40 2.0 Lab Results Laboratory Tests Test 09/21/19 08:35 09/22/19 04:45 White Blood Count 6.0 x10^3/uL (4.0-11.0) Red Blood Count 4.51 x10^6/uL (4.30-5.70) Hemoglobin 12.7 g/dL (13.0-17.5) Hematocrit 39.6 % (39.0-53.0) Mean Corpuscular Volume 88 fL (79-100) Mean Corpuscular Hemoglobin 28 pg (25-35) Mean Corpuscular Hemoglobin Concent 32 g/dL (31-37) Red Cell Distribution Width 15.8 % (11.5-14.5) Platelet Count 154 x10^3/uL (140-400) Prothrombin Time 18.0 SEC (11.7-14.0) Prothromb Time International Ratio 1.5 (0.8-1.1) Sodium Level 145 mmol/L (136-145) Potassium Level 4.1 mmol/L (3.5-5.1) Chloride Level 109 mmol/L (98-107) Carbon Dioxide Level 29 mmol/L (21-32) Anion Gap 7 (6-14) Blood Urea Nitrogen 31 mg/dL (8-26) Creatinine 1.5 mg/dL (0.7-1.3) Estimated GFR (Cockcroft-Gault) 44.4 Glucose Level 101 mg/dL (70-99) Calcium Level 8.7 mg/dL (8.5-10.1) Triglycerides Level 65 mg/dL (0-150) Cholesterol Level 144 mg/dL (0-200) LDL Cholesterol, Calculated 95 mg/dL (0-100) VLDL Cholesterol, Calculated 13 mg/dL (0-40) Non-HDL Cholesterol Calculated 108 mg/dL (0-129) HDL Cholesterol 36 mg/dL (40-60) Cholesterol/HDL Ratio 4.0 Laboratory Tests Test 09/22/19 04:45 Triglycerides Level 65 mg/dL (0-150) Cholesterol Level 144 mg/dL (0-200) LDL Cholesterol, Calculated 95 mg/dL (0-100) VLDL Cholesterol, Calculated 13 mg/dL (0-40) Non-HDL Cholesterol Calculated 108 mg/dL (0-129) HDL Cholesterol 36 mg/dL (40-60) Cholesterol/HDL Ratio 4.0 Brief Hospital Course Mr. Henriquez is a 84 old male admitted for planned LHC due to snginal symptoms. He has been having exertional dyspnea with significant cardiac risk factors. Successful PCI/VEENA of the D1 and noted with 2VD via right transfemoral approach. Right radial approach was attempted but he has tortous subclavian. Both right arteriotomy site and right groin are intact and no swelling or ertyhema. Neurovascular status to RLE and right hand are intact. Tolerated procedure well without immediate complications. AOx3, LSCTA. Vpaced with stable VS and rhythm. He has hx of AFIB. He is to start on plavix with bolus dose prior to DC with restart of home coumadin and INR is being followed by his PCP. Would not be able to start on ASA due to significant increase risk for bleed. Rx for plavix and hi dose lipitor given. Post LHC instructions. Follow up in office as scheduled. Continue with home BB at lower dose. Encouraged cardiac rehab. Discharge Information Condition at Discharge: Stable Follow Up: Weeks (4) Disposition/Orders: D/C to Home Scheduled Atorvastatin Calcium (Atorvastatin Calcium) 20 Mg Tablet, 40 MG PO QHS for HLP, #30 Ref 3 Prescribed by: NBA AG on 09/22/19 1124 Clopidogrel Bisulfate (Clopidogrel) 75 Mg Tablet, 75 MG PO DAILYWBK for CAD, #30 Ref 3 Prescribed by: NBA AG on 09/22/19 1124 Cyanocobalamin (Vitamin B-12) (Vitamin B-12) 1,000 Mcg Tablet.er, 2,500 MCG PO DAILY for supplement, (Reported) Entered as Reported by: PETRONA GAONA on 10/12/13 1639 Last Action: Converted on 09/21/191702 by MINNA CAMPOS RN Folic Acid (Folic Acid) 1 Mg Tablet, 1 MG PO DAILY, (Reported) Entered as Reported by: PETRONA GAONA on 10/12/13 1639 Furosemide (Lasix) 40 Mg Tablet, 0.5 TAB PO DAILY for diuretic, #90 Ref 1 (Reported) Entered as Reported by: Leslie Cardona on 11/23/14 1355 Last Action: Edited on 09/21/19 08 by Brittany Luis Levetiracetam (Keppra) 500 Mg Tablet, 1 TAB PO BID, #180 Ref 3 (Reported) Entered as Reported by: CORRIE HARRISON on 11/21/14 0850 Metoprolol Tartrate (Metoprolol Tartrate) 25 Mg Tablet, 1 TAB PO BID for blood pressure/heart rate, #180 Ref 1 (Reported) Entered as Reported by: Brittany Luis on 09/21/19 0845 Last Action: Continued on 09/21/191702 by MINNA CAMPOS RN Potassium Chloride (Potassium Chloride) 10 Meq Capsule.er, 1 CAP PO DAILY, #90 Ref 1 (Reported) Entered as Reported by: Leslie Cardona on 11/23/14 1355 Ranitidine Hcl (Ranitidine Hcl) 300 Mg Capsule, 1 CAP PO DAILY for GERD, #30 Ref 3 (Reported) Entered as Reported by: Brittany Luis on 09/21/19 0835 Last Action: Converted on 09/21/191702 by MINNA CAMPOS RN Terazosin Hcl (Terazosin Hcl) 5 Mg Capsule, 1 MG PO HS for antidepressant, (Reported) Entered as Reported by: PETRONA GAONA on 10/12/13 1639 Last Action: Continued on 09/21/191702 by MINNA CAMPOS RN Warfarin Sodium (Warfarin Sodium) 3 Mg Tablet, 3 MG PO DAILY16, #30 (Reported) Entered as Reported by: MEENA FONG [facility] on 12/20/18 1123 Last Action: Continued on 09/21/191713 by MINNA CAMPOS RN Discontinued Medications Amiodarone Hcl (Amiodarone Hcl) 200 Mg Tablet, 1 TAB PO DAILY for antiarrhythmic, #90 Ref 1 (Reported) Entered as Reported by: Brittany Luis on 09/21/19834 Last Action: Discontinued on 09/21/19844 by Brittany Luis Metoprolol Succinate (Toprol Xl) 25 Mg Tab.er.24h, 25 MG PO DAILY for FOR HYPERTENSION, #30 Ref 0 (Reported) Entered as Reported by: ANTONIO LAGOS on 08/05/19 0723 Last Action: Discontinued on 09/21/19834 by Brittany Luis Thiamine Hcl (Thiamine Hcl) 250 Mg Tablet, 250 MG PO DAILY, (Reported) Entered as Reported by: PETRONA GAONA on 10/12/13 1639 Last Action: Discontinued on 09/21/19834 by Brittany Luis Patient Instructions Patient Instructions GENERAL INSTRUCTIONS: 1. Your dressing should be removed prior to leaving the hospital. 2. It is OK to shower the day after your procedure. 3. If you received stents, be sure to carry your stent information card with you in your wallet/purse at all times. 4. Call the office immediately at [phone] if you notice any fever or if there is redness, worsening tenderness/pain, increased bruising, or drainage from the puncture site. 5. Should you have bleeding from the site, lie down immediately & put pressure on the site. The pressure should be hard enough to stop the bleeding. Have the nearest person call 911. DO NOT try to drive to the ER with active bleeding. 6. If you notice a change in color, coolness to touch, or loss of feeling in the affected extremity, come to the emergency room. Please have someone drive you or call 911 if no one is available. DO NOT drive yourself. 7. If you normally take glucophage (metformin), please do not take this medicine for 48 hours following your procedure. 8. DO NOT STOP TAKING YOUR PLAVIX OR ASPIRIN UNLESS IT IS CLEARED BY A RAPID EXTRACTOR OPERATOR OF YOUR PAYROLL ACCOUNTING CLERK AT OUR OFFICE. 9. QUIT SMOKING: the [employer], [employer], & [employer] have cessation resources available on their websites 10. Please have someone available to drive you home from the hospital as you may be limited by sedation medications given during the procedure. Femoral (Groin) access: 1. Do no lifting, pushing, pulling, bending, stooping, or recurrent stair climbing for 3 days following your procedure. 2. Once past the first 3 days, do not do any HEAVY exertion or lifting for one week following the procedure. No gym workouts, running, lifting greater than a gallon of milk, etc 3. Do not submerge in bath or pool for one week. OK to drive 3 days following your procedure, but if going long distance, do not go alone & take hourly breaks to get out of car and walk around. Radial Artery (Wrist) access: 1. No pushing, pulling, lifting, typing, or anything that requires repetitive use/movement of the affected wrist for 3 days following your procedure. 2. OK to drive the day following your procedure. (This is because of effects of sedating medications.) Call the office at [phone] for any questions or concerns. NBA AG APRN Sep 22, 2019 11:19
[2019-09-22] MEDS ORDERED: ATOR20TA58 PO (11:24)
[2019-09-22] MEDS ORDERED: CLOP75TA PO (11:24)
[2019-09-22] MEDS ORDERED: CLOPIDOGREL BISULFATE 75 MG TABLET PO SCH (11:30)
[2019-09-22] MEDS ORDERED: CLOPIDOGREL BISULFATE 75 MG TABLET PO ONE (12:15)
--- NOTE | 2019-09-22 12:20 | NUR ---
SS following for discharge planning. SS reviewed pt chart. Pt is from home with spouse and is currently on room air. SS will continue to follow for discharge planning.
--- NOTE | 2019-09-22 14:00 | NUR ---
Discharge Note: JOSELINE CHACON Discharge instructions and discharge home medications reviewed with Patient and a copy given. All questions have been answered and understanding verbalized. The following instructions and handouts were given: post cardiac catheterization with stent placement, cardiac rehab, new medications atorvastatin and plavix Discontinued lines and drains: Peripheral IV intact. Patient discharged to Home or Self Care with Family Member via Wheelchair
== END 2019-09-22 14:05 | disposition home or self-care (01) ==
LOC: CCL 08:13 → 2 NORTH 15:18 → INTOOBSV 15:18
PROVIDERS: ADMIT Internal Medicine Cardiovascular Disease; ATTEND Internal Medicine Cardiovascular Disease
DX: I63.9 Cerebral infarction, unspecified (principal); R06.09 Other forms of dyspnea; I48.91 Unspecified atrial fibrillation; I25.10 Atherosclerotic heart disease of native coronary artery without angina pectoris; Z95.0 Presence of cardiac pacemaker; Z86.73 Personal history of transient ischemic attack (TIA), and cerebral infarction without residual deficits; Z79.01 Long term (current) use of anticoagulants; Z87.891 Personal history of nicotine dependence
CPT/HCPCS: 36415; 80048; 80061; 85027; 85610; 92928; 93458; 96374; 96375; C1725; C1760; C1769; C1874; C1887; C1892; G0269; G0378; G0379; J0583; J1644; J2250; J3010; J3490; J7030; Q9967; 99152; 99153; C1713; C1771

== ENCOUNTER → 2020-03-29 | Outpatient (CLI) | payer MEDICARE ==
[~2020-03-29] MED LIST changes: +ATOR20TA58 PO; +CLOP75TA PO; +METO25TA4 PO; +RANI300C PO
--- NOTE | 2020-03-29 11:05 | CARD ---
MR#: [id number] Date of Study: 03/29/2020 Ordering Physician: NOVA THOMAS, Referring Physician: NOVA THOMAS, Tech: Linsey Caicedo APPROVED REPORT EXAM: Two-dimensional and M-mode echocardiogram with Doppler and color Doppler. Other Information Quality : AverageHR: 85bpm INDICATION Cardiac Disease: CAD Mitral Valve repair estimated 20 years ago Surgery/Intervention Pacemaker: Date: 2018 RISK FACTORS Hypertension 2D DIMENSIONS Left Atrium(2D)4.7 (1.6-4.0cm)IVSd1.6 (0.7-1.1cm) Aortic Root(2D)3.8 (2.0-3.7cm)LVDd5.3 (3.9-5.9cm) LVOT Diameter2.2 (1.8-2.4cm)PWd1.3 (0.7-1.1cm) LVDs3.6 (2.5-4.0cm)FS (%) 31.6 % SV79.9 mlLVEF(%)59.1 (>50%) Aortic Valve AoV Peak Jatin.143.4cm/sAoV VTI20.3cm AO Peak GR.8.2mmHgLVOT Peak Jatin.72.0cm/s LVOT VTI 13.98cmAO Mean GR.4mmHg CHRIST (VMAX)1.95cm5YNF (VTI)2.72cm2 Tricuspid Valve TR P. Nzktqmjt258rj/sRAP YTQVBHHN1rbJz TR Peak Gr.89gxXwBJYM43vbSz LEFT VENTRICLE The left ventricle is normal size. There is mild to moderate concentric left ventricular hypertrophy. The left ventricular systolic function is mildly impaired. EF 40% Septal motion suggestive of conduc tion defect. Otherwise, mild global hypokinesis. Tissue Doppler imaging reveals moderate left ventric ular diastolic dysfunction. RIGHT VENTRICLE The right ventricle is normal size. There is normal right ventricular wall thickness. The right ventr icular systolic function is normal. There is a pacemaker lead in the right ventricle. ATRIA The left atrium is moderately dilated. The right atrium is moderately dilated. The interatrial septum is intact with no evidence for an atrial septal defect or patent foramen ovale as noted on 2-D or Do ppler imaging. AORTIC VALVE The aortic valve is normal in structure and function. Doppler and Color Flow revealed no significant aortic regurgitation. There is no significant aortic valvular stenosis. MITRAL VALVE Restricted posterior leaflet. There is no mitral valve stenosis. Doppler and Color-flow revealed trac e mitral regurgitation. TRICUSPID VALVE The tricuspid valve is normal in structure and function. Doppler and Color Flow revealed trace tricus pid regurgitation with an estimated PAP of 28 mmHg. There is no tricuspid valve stenosis. PULMONIC VALVE The pulmonic valve is not well visualized. Doppler and Color Flow revealed no pulmonic valvular regur gitation. There is no pulmonic valvular stenosis. GREAT VESSELS The aortic root is normal in size. The IVC was not visualized. PERICARDIAL EFFUSION There is no evidence of significant pericardial effusion. Critical Notification Critical Value: No <Conclusion> The left ventricular systolic function is mildly impaired. EF 40% Septal motion suggestive of conduction defect. Otherwise, mild global hypokinesis. There is a pacemaker lead in the right ventricle. Signed by : Nova Thomas, Electronically Approved : 03/29/2020 11:05:24
== END | disposition home or self-care (01) ==
LOC: ECHO 08:35
PROVIDERS: ATTEND Internal Medicine Cardiovascular Disease
DX: I11.9 Hypertensive heart disease without heart failure (principal); I25.10 Atherosclerotic heart disease of native coronary artery without angina pectoris
CPT/HCPCS: 93306

== ENCOUNTER → 2021-09-17 | Outpatient (CLI) | payer MEDICARE ==
[~2021-09-17] MED LIST changes: -AMIO200T4 PO; +AMIO200T53 PO
--- NOTE | 2021-09-18 12:39 | CARD ---
MR#: [id number] Date of Study: 09/17/2021 Ordering Physician: NOVA PEREZ, Referring Physician: NOVA PEREZ, Tech: Karina Zaldivar [facility] APPROVED REPORT EXAM: Two-dimensional and M-mode echocardiogram with Doppler and color Doppler. Other Information Quality : AverageHR: 90bpm Rhythm : LBBB INDICATION Mitral Valve Disease RISK FACTORS Hypertension 2D DIMENSIONS RVDd4.7 (2.9-3.5cm)Left Atrium(2D)5.9 (1.6-4.0cm) IVSd1.1 (0.7-1.1cm)Aortic Root(2D)4.0 (2.0-3.7cm) LVDd4.8 (3.9-5.9cm)LVOT Diameter2.5 (1.8-2.4cm) PWd1.2 (0.7-1.1cm)LVDs3.6 (2.5-4.0cm) FS (%) 24.9 %SV53.6 ml Aortic Valve AoV Peak Jatin.138.6cm/sAoV VTI25.1cm AO Peak GR.7.7mmHgLVOT Peak Jatin.79.9cm/s AO Mean GR.4mmHgAVA (VMAX)2.84cm2 Mitral Valve MV E Hsttipnx250.3cm/sMV E Peak Gr.12mmHg MV E Mean Gr.4mmHg Pulmonary Valve PV Peak Baoqpmdc84.4cm/s Tricuspid Valve TR P. Volpwmhc418zz/sTR Peak Gr.21mmHg LEFT VENTRICLE The left ventricle is normal size. There is mild concentric left ventricular hypertrophy. The ejectio n fraction is moderately impaired. LV ejection fraction is 30 to 35%. There is global hypokinesis of the left ventricle. RIGHT VENTRICLE The right ventricle is mildly dilated. There is normal right ventricular wall thickness. The right ve ntricular systolic function is normal. ATRIA The left atrium is moderately dilated. The right atrium is mild to moderately dilated. The interatria l septum is intact with no evidence for an atrial septal defect or patent foramen ovale as noted on 2 -D or Doppler imaging. AORTIC VALVE The aortic valve is normal in structure and function. Doppler and Color Flow revealed trace aortic re gurgitation. There is no significant aortic valvular stenosis. MITRAL VALVE The mitral valve is thickened but opens well. S/P mitral valve repair There is no evidence of mitral valve prolapse. There is no significant mitral valve stenosis. Doppler and Color-flow revealed mild m itral regurgitation. TRICUSPID VALVE The tricuspid valve is normal in structure and function. Doppler and Color Flow revealed mild tricusp id regurgitation. Estimated PAP 30-35 mmHg. There is no tricuspid valve stenosis. GREAT VESSELS The aortic root is mildly enlarged. The ascending aorta is mildly dilated. The IVC was not visualized . PERICARDIAL EFFUSION There is no evidence of significant pericardial effusion. Critical Notification Critical Value: No <Conclusion> The left ventricle is normal size. The ejection fraction is moderately impaired. LV ejection fraction is 30 to 35%. There is global hypokinesis of the left ventricle. There is mild concentric left ventricular hypertrophy. Doppler and Color Flow revealed trace aortic regurgitation. There is no significant aortic valvular stenosis. The mitral valve is thickened but opens well. S/P mitral valve repair There is no significant mitral valve stenosis. Doppler and Color-flow revealed mild mitral regurgitation. Doppler and Color Flow revealed mild tricuspid regurgitation. Estimated PAP 30-35 mmHg. Signed by : Carlo Coleman MD Electronically Approved : 09/18/2021 12:38:42
== END ==
LOC: ECHO 09:27
PROVIDERS: ATTEND Internal Medicine Cardiovascular Disease
DX: I08.1 Rheumatic disorders of both mitral and tricuspid valves (principal); I77.819 Aortic ectasia, unspecified site; I10 Essential (primary) hypertension
CPT/HCPCS: 93306

== ENCOUNTER → 2022-03-18 | Outpatient (CLI) | payer MEDICARE ==
[~2022-03-18] MED LIST changes: +REGADENOSON 0.4 MG/5 ML DISP.SYRIN. IV ONE
--- NOTE | 2022-03-19 08:09 | RAD ---
MR#: [id number] Date of Study: 03/18/2022 Ordering Physician: NOVA THOMAS, Referring Physician: VITALIY BAUGH Tech: RT Jaswant (R) (N) APPROVED REPORT Test Type: Pharmacological Stress Nurse/Tech: Yazmin KUMAR Test Indications: CAD, Dyspnea Cardiac History: PPM, CVA, Anticoagulants Medications: See EMR Medical History: See EMR Resting EC% V paced Resting Heart Rate: 98 bpm Resting Blood Pressure: 144/91mmHg Pretest Chest Pain: No chest pain Nurse/Tech Notes Lungs clear, diminished. No SOA, no chest pain. Pharm. Details Pharmacologic stress testing was performed using 0.4mg per 5ml of regadenoson given intravenously ove r 7-10 seconds. Stress Symptoms Flushing. No chest pain, No SOA. Flushed "weird" feeling gone by recovery period. POST EXERCISE Reason for Termination: Infusion complete Max HR: 150 bpm Max Blood Pressure: 139/73mmHg Blood Pressure response to exercise: Normal blood pressure response during stress. Heart Rate response to exercise: Normal. Chest Pain: No. Arrhythmia: No. ST Change: No. INTERPRETATION Stress EKG Conclusion: Non-diagnostic EKG due to pacing artifact. Imaging Protocol IMAGE PROTOCOL: Rest Tc-99m/stress Tc-99m 1 day Rest: Stress: Viability: Radiopharm.Tc99m BgdfupkyoZp51o Sestamibi Ryys90yFw 29.7mCi Duration 13min. 13min. Img Date 03/18/2022 03/18/2022 Inj-Img Jwui27pxw. 60min. Rest Admin Site:IV - Left AntecubitalAdministrator:RT Zoraida (R)(N) Stress Admin Site: IV - Left AntecubitalAdministrator: ABIGAIL Calero STRESS DATA End Diast. Vol.149.0mlLVEDV index BSA68.0ml End Syst. Vol.71.0mlLVESV index BSA32.0ml Myocardial Clfl345.0gEject. Gxwuxibx22.0% Stress Scores Regional WT0.00Summed WT18.00 Regional WM1.00Summed WM11.00 LV Perfusion There is a moderate sized fixed distal inferior and apical defect suggestive of prior infarct without active ischemia. Wall Motion Mild global hypokinesis with ejection fraction of 50%. LV Perf. Quant 17 Seg. SSS6.00 17 Seg. SRS6.00 17 Seg. SDS0.00 Stress Defect Extent (% LAD)21.90Rest Defect Extent (% LAD)13.10Rev. Defect Extent (% LAD)7.50 Stress Defect Extent (% LCX) 6.30Rest Defect Extent (% LCX)17.50Rev. Defect Extent (% LCX)0.00 Stress Defect Extent (% RCA)6.70Rest Defect Extent (% RCA)20.00Rev. Defect Extent (% RCA)0.00 Stress Defect Extent (% SMILEY)17.40Rest Defect Extent (% SMILEY)21.70Rev. Defect Extent (% SMILEY)2.60 Other Information Quality:Fair Risk Assessment: Moderate Risk Conclusion 1. Nondiagnostic EKG due to pacing artifact 2. Fixed distal inferior and apical defect suggestive of prior infarct. No active ischemia 3. Low normal EF at approximately 50 to 55% 4. Moderate risk for future cardiovascular events. Signed by : Nova Thomas, Electronically Approved : 03/19/2022 08:08:45
== END ==
LOC: NM 09:52
PROVIDERS: ATTEND Internal Medicine Cardiovascular Disease
DX: R94.31 Abnormal electrocardiogram [ECG] [EKG] (principal); I25.10 Atherosclerotic heart disease of native coronary artery without angina pectoris
CPT/HCPCS: 78452; 93017; A9500; J2785